=== PATIENT | female | born 1950 | race Caucasian/White ===

== ENCOUNTER 2024-02-06 09:44 | Inpatient (IN) ==
[2024-02-06 10:43] LABS: Basophils # (auto) 0.09 K/uL (0.00-0.20); Basophils % (auto) 0.7 %; Eosinophils # (auto) 1.27 K/uL (0.00-0.50); Eosinophils % (auto) 9.5 %; Hematocrit (blood only) 38.3 % (37.0-47.0); Hemoglobin 12.3 g/dl (12.0-16.0); Immature Granulocytes # (auto) 0.12 K/uL (0.01-0.20); Immature Granulocytes % (auto) 0.9 %; Lymphocytes # (auto) 2.07 K/uL (1.20-3.40); Lymphocytes % (auto) 15.5 %; Mean Corpuscular Hemoglobin 29.9 pg (25.0-34.0); Mean Corpuscular Hgb Conc 32.1 g/dL (32.0-36.0); Mean Platelet Volume 9.2 fL (9.4-12.4); Monocytes # (auto) 1.27 K/uL (0.11-0.59); Monocytes % (auto) 9.5 %; Neutrophils # (auto) 8.52 K/uL (1.40-6.50); Neutrophils % (auto) 63.9 %; Platelet Count 325 K/uL (130-400); RDW Coefficient of Variation 13.2 % (11.5-14.5); RDW Standard Deviation 44.9 fL (36.4-46.3); Red Blood Count 4.12 M/uL (4.20-5.40); White Blood Count 13.34 K/ul (4.8-10.8)
[2024-02-06 10:59] LABS: Bilirubin,Total 0.6 mg/dl (0.2-1.0); Calcium 9.8 mg/dl (8.6-10.3); Potassium 3.5 mmol/L (3.5-5.1)
--- NOTE | 2024-02-06 11:01 | XRay Report ---
SINGLE VIEW CHEST CLINICAL HISTORY: Dyspnea FINDINGS: An AP, portable, upright chest radiograph is compared to study dated 07/29/2023. The cardiom ediastinal silhouette is unremarkable noting atherosclerotic calcification of the thoracic aorta. Chr onic interstitial thickening is similar to previous. There is mild bibasilar scarring/atelectasis. Th e lungs and pleural spaces are otherwise clear. No pneumothorax is seen. The skeletal structures are osteopenic. The bony thorax is grossly intact. IMPRESSION: No acute cardiopulmonary abnormality. ACT 112: Negative or not required by law. Electronically signed by: Jeff Aiken M.D. 02/06/2024 11:00 AM
[2024-02-06 11:02] LABS: Base Excess VBG -0.2 mEq/L; HCO3 VBG 25 mmol/L; Oxygen Saturation VBG 65.2 %; PCO2 VBG 41 mmHg (38-50); PO2 VBG 36 mmHg; pH VBG 7.39 (7.36-7.41)
[2024-02-06 11:05] LABS: Albumin Globulin Ratio 1.1 (0.9-2); Est GFR (African American) 44.9 ml/min; Est GFR (Non-African American) 38.8 ml/min; Globulin 3.8 gm/dl (2.5-4.0); Total Protein 7.8 gm/dl (6.0-8.3)
[2024-02-06 11:42] LABS: Adenovirus PCR Not Detected (NotDetected); Bordetella parapertussis PCR Not Detected (NotDetected); Bordetella pertussis PCR Not Detected (NotDetected); Chlamydia pneumoniae PCR Not Detected (NotDetected); Coronavirus 229E PCR Not Detected (NotDetected); Coronavirus CoV-2 (COVID19)PCR Not Detected (NotDetected); Coronavirus HKU1 PCR Not Detected (NotDetected); Coronavirus NL63 PCR Not Detected (NotDetected); Coronavirus OC43PCR Not Detected (NotDetected); Human Metapneumovirus PCR Not Detected (NotDetected); Influenza A PCR Not Detected (NotDetected); Influenza B PCR Not Detected (NotDetected); Mycoplasma pneumoniae PCR Not Detected (NotDetected); Parainfluenza Virus 1 PCR Not Detected (NotDetected); Parainfluenza Virus 2 PCR Not Detected (NotDetected); Parainfluenza Virus 3 PCR Not Detected (NotDetected); Parainfluenza Virus 4 PCR Not Detected (NotDetected); Respiratory Syncytial VirusPCR Not Detected (NotDetected); Rhinovirus/Enterovirus PCR DETECTED (NotDetected)
[2024-02-06] MEDS: ALBUTEROL 0.5% NEB SOLN 2.5 MG/0.5 ML VIAL NEB STA (11:44)
[2024-02-06] MEDS: methylPREDNISolone 125 MG/2 ML VIAL IV STA (11:59)
[2024-02-06] MEDS: diphenhydrAMINE 50 MG/ML VIAL IV STA (11:59)
[2024-02-06] MEDS: OPTIRAY 320 125ml IV ONE (12:19)
--- NOTE | 2024-02-06 12:55 | Electrocardiogram Report ---
Test Reason : Blood Pressure : */* mmHG Vent. Rate : 113 BPM Atrial Rate : 113 BPM P-R Int : 138 ms QRS Dur : 150 ms QT Int : 304 ms P-R-T Axes : 55 43 -19 degrees QTcB Int : 416 ms Sinus tachycardia Possible Left atrial enlargement Nonspecific ST abnormality Abnormal ECG When compared with ECG of 29-Jul-2023 14:43, ST now depressed in Inferior leads Inverted T waves have replaced nonspecific T wave abnormality in Inferior leads Nonspecific T wave abnormality now evident in Anterolateral leads Confirmed by Uriel Grace ([id number]) on 02/06/2024 12:55:19 PM Referred By: REFERRED SELF Confirmed By: Uriel Grace
--- NOTE | 2024-02-06 13:00 | Emergency Department Note ---
Impression & Plan Acute hypoxic respiratory failure, Enterovirus infection, Asthma exacerbation ED Provider Note NAME: JIGAR AMBROSIO AGE: 73 SEX: F : 1950 ARRIVES VIA: Ambulance INFORMANT: Patient, ED PROVIDER(S): Lisa Pereira MD CHIEF COMPLAINT: Shortness of breath, hypoxia HPI: This is a 73-year-old female presented for shortness of breath and hypoxia. Patient states that she developed a cough on Tuesday and has been worsening since then. She notes last night she wore her 's oxygen and this morning when she took her oxygen level of 77% off of his oxygen. Patient's ox level here on room air was in the 80s. She recieved Solu-Medrol and DuoNeb as per EMS on the way here. She has a history of asthma. She notes no chest pain or pleurisy. No leg swelling or leg pain. No history of blood clots. ROS: See above HPI for pertinent positives & negatives. A total of 10 systems reviewed and were otherwise negative. PHYSICAL EXAMINATION: General: resting comfortably in no acute distress Head: Normocephalic and atraumatic Eyes: Normal inspection, extraocular muscles intact Ear, nose, throat: Normal external exam Neck: Normal range of motion Respiratory: lungs clear to auscultation bilaterally Cardiovascular: Regular rate/rhythm, no murmur GI: soft, nontender, no guarding or rebound Extremities: nontender, moves all extremities Neuro: The patient awake and alert, appropriately conversive, no focal deficits, symmetric faces Skin: Warm, dry, and intact MEDICAL DECISION MAKING: This is 73-year-old female with shortness of breath and hypoxia. Patient had respiratory type symptoms and now hypoxia. Consider pneumonia, upper respiratory infection, PE, dissection. -Chest Xray independently interpreted by me showing no pneumothorax, focal opacity, or pleural effusions. -Blood work is reviewed showing a slight leukocytosis of 13.34. Otherwise electrolytes are within normal limits. VBG within normal limits. Creatinine 1.36. Troponin negative, BNP negative. -Upper respiratory panel is positive for entero-/rhinovirus -Patient titrated from no nasal cannula to OxyMask and now to nonrebreather -Patient given a round of albuterol treatment for recurrent symptoms -Due to patient's persistent hypoxia, extreme, will proceed to CTA of the chest to rule out pulmonary embolism - upon management interpretation, no PE is seen, does reveal a possible empyema versus pneumonia -Discussed care with oncoming hospitalist for admission Differential diagnosis: See above ER treatment provided: See below Diagnostics interpreted by me: ECG: ECG independently interpreted by me with sinus tachycardia, rate of 113 normal MI, normal QRS, normal QTc, no ST segment elevations consistent with STEMI criteria Cardiac Monitoring: An order was placed for continuous cardiac monitoring. The monitor shows a rate of 80 with sinus rhythm. Laboratory studies: As stated above and show below. Imaging studies: See below. Critical Care Note: I have personally spent 35 minutes of critical care time in the direct management of this patient. This includes bedside care, interpretation of diagnostic studies, and testing, discussion with consultants, patient, and family members, and other required patient management activities. This 35 minutes is in excess of all separately billable procedures. Past Med/Surg History Problem List (Updated 02/06/24 @ 14:45 by Lisa Pereira MD) Asthma exacerbation (Acute) Enterovirus infection (Acute) Acute hypoxic respiratory failure (Acute) Premature ventricular beats Medical History (Updated 02/06/24 @ 14:45 by Lsia Pereira MD) Chronic HFrEF (heart failure with reduced ejection fraction) HTN (hypertension) Coronary artery disease Nonobstructive Cardiomyopathy Actinic keratosis History of nonmelanoma skin cancer Hypertensive kidney disease with chronic kidney disease stage III Senile osteoporosis Essential hypertension with goal blood pressure less than 140/90 Hypothyroidism, postradioiodine therapy Mild persistent asthma in adult without complication Surgical History History of cataract removal with insertion of prosthetic lens Family History Mother Heart disorder Brother H/O heart bypass surgery Brother Diabetes H/O heart bypass surgery Sister Diabetes Coronary heart disease Brother H/O heart bypass surgery Social History Smoking Status: Never smoker Hx Alcohol Use: No Hx Substance Use: No Preferred Language: [place] Communication Ability: Effective 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 Beliefs That Will Affect Care: None Current Living Situation: Spouse Feels Safe at Home: Yes Assistive Devices: None Allergies Allergies Allergy/AdvReac Type Severity Reaction Status Date / Time azithromycin Allergy Hives Verified 07/27/23 07:25 Iodinated Contrast Media Allergy Hives Verified 07/27/23 07:25 promethazine Allergy Hives Verified 07/27/23 07:25 Home Meds Home Medications Medication Instructions Recorded Confirmed alendronate 70 mg tablet 70 mg PO WK 09/19/19 02/06/24 aspirin 81 mg chewable tablet 81 mg PO DAILY 09/19/19 02/06/24 atorvastatin 20 mg tablet 20 mg PO DAILY 09/19/19 02/06/24 beclomethasone dipropionate 80 2 inh inhalation Q12H 09/19/19 02/06/24 mcg/actuation HFA breath activated aerosol albuterol sulfate 90 mcg/actuation 108 mcg inhalation Q4 PRN Cough 07/27/23 02/06/24 aerosol inhaler (Ventolin HFA) clobetasol 0.05 % topical ointment 1 applic topical 2XD 07/27/23 02/06/24 cyanocobalamin (vitamin B-12) 1,000 mcg PO DAILY 07/27/23 02/06/24 1,000 mcg tablet (Vitamin B-12) lisinopril 10 mg tablet 10 mg PO BID 07/27/23 02/06/24 multivitamin 1 tab PO DAILY 07/27/23 02/06/24 albuterol sulfate 2.5 mg/3 mL 2.5 mg inhalation Q4H PRN 02/06/24 02/06/24 (0.083 %) solution for nebulization Shortness Of Breath Or Wheezing amlodipine 2.5 mg tablet 2.5 mg PO HS 02/06/24 02/06/24 levothyroxine 88 mcg tablet 88 mcg PO DAILY 02/06/24 02/06/24 metoprolol succinate 25 mg 37.5 mg PO HS 02/06/24 02/06/24 tablet,extended release 24 hr Results & Data (ED) Vital Signs Vital Signs - 24 hr 02/06/24 09:54 02/06/24 09:57 02/06/24 10:00 Temperature Temperature Source Pulse Rate 111 H Pulse Rate from SpO2 Sensor Respiratory Rate Respiratory Effort / Characteristics Respiratory Depth Blood Pressure 166/100 H Blood Pressure Mean 125 Pulse Oximetry 84 L Oxygen Delivery Method Oxymask Oxygen Flow Rate 0 Sepsis Recent Fever Within 48 Hours Sepsis New/Unexplained Change in Mental Status Sepsis Action Taken by Nursing Oxygen Flow Rate - Titration 10 Pulse Oximetry Post Tiitration 91 02/06/24 10:00 02/06/24 10:08 02/06/24 10:08 Temperature 36.6 C Temperature Source Oral Pulse Rate 104 H Pulse Rate from SpO2 Sensor Respiratory Rate 24 Respiratory Effort / Characteristics Spontaneous Short of Breath Short of Breath Respiratory Depth Normal Blood Pressure 163/80 H 163/80 H Blood Pressure Mean 136 107 Pulse Oximetry 84 L Oxygen Delivery Method Room Air Oxygen Flow Rate Sepsis Recent Fever Within 48 Hours No Sepsis New/Unexplained Change in Mental Status No Sepsis Action Taken by Nursing No Action Required Oxygen Flow Rate - Titration Pulse Oximetry Post Tiitration 02/06/24 10:15 02/06/24 10:15 02/06/24 10:28 Temperature Temperature Source Pulse Rate Pulse Rate from SpO2 Sensor Respiratory Rate Respiratory Effort / Characteristics Respiratory Depth Blood Pressure 150/85 H 150/85 H Blood Pressure Mean 102 102 Pulse Oximetry 92 Oxygen Delivery Method Non-rebreather Oxygen Flow Rate 15 Sepsis Recent Fever Within 48 Hours Sepsis New/Unexplained Change in Mental Status Sepsis Action Taken by Nursing Oxygen Flow Rate - Titration Pulse Oximetry Post Tiitration 02/06/24 10:30 02/06/24 10:30 02/06/24 10:30 Temperature Temperature Source Pulse Rate 97 H Pulse Rate from SpO2 Sensor 96 H Respiratory Rate 26 H Respiratory Effort / Characteristics Respiratory Depth Blood Pressure 167/91 H 167/91 H Blood Pressure Mean 139 139 Pulse Oximetry 93 Oxygen Delivery Method Oxygen Flow Rate Sepsis Recent Fever Within 48 Hours Sepsis New/Unexplained Change in Mental Status Sepsis Action Taken by Nursing Oxygen Flow Rate - Titration Pulse Oximetry Post Tiitration 02/06/24 10:42 02/06/24 10:54 02/06/24 11:00 Temperature Temperature Source Pulse Rate 84 81 Pulse Rate from SpO2 Sensor 85 81 Respiratory Rate 15 19 Respiratory Effort / Characteristics Respiratory Depth Blood Pressure 159/83 H Blood Pressure Mean 140 Pulse Oximetry 93 95 Oxygen Delivery Method Oxygen Flow Rate Sepsis Recent Fever Within 48 Hours Sepsis New/Unexplained Change in Mental Status Sepsis Action Taken by Nursing Oxygen Flow Rate - Titration Pulse Oximetry Post Tiitration 02/06/24 11:06 02/06/24 11:12 02/06/24 11:15 Temperature Temperature Source Pulse Rate 80 95 H Pulse Rate from SpO2 Sensor 81 95 H Respiratory Rate 16 24 Respiratory Effort / Characteristics Respiratory Depth Blood Pressure 154/95 H Blood Pressure Mean 124 Pulse Oximetry 93 96 Oxygen Delivery Method Oxygen Flow Rate Sepsis Recent Fever Within 48 Hours Sepsis New/Unexplained Change in Mental Status Sepsis Action Taken by Nursing Oxygen Flow Rate - Titration Pulse Oximetry Post Tiitration 02/06/24 11:20 02/06/24 11:30 02/06/24 11:30 Temperature Temperature Source Pulse Rate 88 Pulse Rate from SpO2 Sensor 90 Respiratory Rate 24 Respiratory Effort / Characteristics Respiratory Depth Blood Pressure 154/78 H 154/78 H Blood Pressure Mean 106 106 Pulse Oximetry 96 Oxygen Delivery Method Oxygen Flow Rate Sepsis Recent Fever Within 48 Hours Sepsis New/Unexplained Change in Mental Status Sepsis Action Taken by Nursing Oxygen Flow Rate - Titration Pulse Oximetry Post Tiitration 02/06/24 11:39 02/06/24 11:41 02/06/24 11:44 Temperature Temperature Source Pulse Rate 86 91 H Pulse Rate from SpO2 Sensor 85 91 H Respiratory Rate 19 23 Respiratory Effort / Characteristics Respiratory Depth Blood Pressure Blood Pressure Mean Pulse Oximetry 95 94 90 Oxygen Delivery Method Oxymask Oxygen Flow Rate 10 Sepsis Recent Fever Within 48 Hours Sepsis New/Unexplained Change in Mental Status Sepsis Action Taken by Nursing Oxygen Flow Rate - Titration Pulse Oximetry Post Tiitration 02/06/24 11:45 02/06/24 11:53 02/06/24 12:00 Temperature Temperature Source Pulse Rate 87 Pulse Rate from SpO2 Sensor 87 Respiratory Rate 21 Respiratory Effort / Characteristics Respiratory Depth Blood Pressure 145/98 H 174/97 H Blood Pressure Mean 117 134 Pulse Oximetry 94 Oxygen Delivery Method Oxygen Flow Rate Sepsis Recent Fever Within 48 Hours Sepsis New/Unexplained Change in Mental Status Sepsis Action Taken by Nursing Oxygen Flow Rate - Titration Pulse Oximetry Post Tiitration Laboratory Data 02/06/24 09:56 02/06/24 09:56 Lab Results 02/06/24 02/06/24 Range/Units 09:56 10:48 WBC 13.34 H (4.8-10.8) K/ul RBC 4.12 L (4.20-5.40) M/uL Hgb 12.3 (12.0-16.0) g/dl Hct 38.3 (37.0-47.0) % MCV 93.0 (80.0-100.0) fL MCH 29.9 (25.0-34.0) pg MCHC 32.1 (32.0-36.0) g/dL RDW Std Deviation 44.9 (36.4-46.3) fL RDW Coeff of [place] 13.2 (11.5-14.5) % Plt Count 325 (130-400) K/uL MPV 9.2 L (9.4-12.4) fL Immature Gran % (Auto) 0.9 % Neut % (Auto) 63.9 % Lymph % (Auto) 15.5 % [place] % (Auto) 9.5 % Eos % (Auto) 9.5 % Baso % (Auto) 0.7 % Neut # (Auto) 8.52 H (1.40-6.50) K/uL Lymph # (Auto) 2.07 (1.20-3.40) K/uL [place] # (Auto) 1.27 H (0.11-0.59) K/uL Eos # (Auto) 1.27 H (0.00-0.50) K/uL Baso # (Auto) 0.09 (0.00-0.20) K/uL Immature Gran # (Auto) 0.12 (0.01-0.20) K/uL VBG pH 7.39 (7.36-7.41) VBG pCO2 41 (38-50) mmHg VBG pO2 36 mmHg VBG HCO3 25 mmol/L VBG O2 Saturation 65.2 % VBG Base Excess -0.2 mEq/L Sodium 136 (136-145) mmol/L Potassium 3.5 (3.5-5.1) mmol/L Chloride 102 (98-107) mmol/L Carbon Dioxide 24 (21-32) mmol/L Anion Gap 10 (3-11) BUN 15 (6-23) mg/dl Creatinine 1.36 H (0.6-1.2) mg/dl Est Cr Clr Drug Dosing 35.0 ml/min Est GFR ( Amer) 44.9 ml/min Est GFR (Non-Af Amer) 38.8 ml/min BUN/Creatinine Ratio 11.0 (10-20) Glucose 155 H (70-99(Fasting)) mg/dl Calcium 9.8 (8.6-10.3) mg/dl Total Bilirubin 0.6 (0.2-1.0) mg/dl AST 15 (13-39) U/L ALT 10 (7-52) U/L Alkaline Phosphatase 80 (34-104) U/L Troponin I High Sens 7.0 (0-14) pg/ml B-Natriuretic Peptide 82 (0-100) pg/ml Total Protein 7.8 (6.0-8.3) gm/dl Albumin 4.0 (3.4-5.0) gm/dl Globulin 3.8 (2.5-4.0) gm/dl Albumin/Globulin Ratio 1.1 (0.9-2) Adenovirus (PCR) Not Detected (NotDetected) B. pertussis DNA (PCR) Not Detected (NotDetected) B.parapertussis DNA PCR Not Detected (NotDetected) C. pneumoniae DNA (PCR) Not Detected (NotDetected) Coronavirus OC43 (PCR) Not Detected (NotDetected) Coronavirus HKU1 (PCR) Not Detected (NotDetected) Coronavirus 229E (PCR) Not Detected (NotDetected) SARS-CoV-2 (PCR) Not Detected (NotDetected) Coronavirus NL63 (PCR) Not Detected (NotDetected) Human Metapneumovir PCR Not Detected (NotDetected) Influenza Type A (PCR) Not Detected (NotDetected) Influenza Type B (PCR) Not Detected (NotDetected) M. pneumoniae (PCR) Not Detected (NotDetected) Parainfluenza 1 (PCR) Not Detected (NotDetected) Parainfluenza 2 (PCR) Not Detected (NotDetected) Parainfluenza 3 (PCR) Not Detected (NotDetected) Parainfluenza 4 (PCR) Not Detected (NotDetected) RSV (PCR) Not Detected (NotDetected) Entero/Rhino (PCR) DETECTED A (NotDetected) Administered Medications Ceftriaxone Sodium (Rocephin) 1,000 mg in 50 mls @ 100 mls/hr IV NOW ONE Stop: 02/06/24 14:59 Last Admin: 02/06/24 14:33 Dose: 100 mls/hr Documented By: GGG Discontinued Medications Albuterol (Albuterol 0.5% Neb Soln 2.5 Mg/0.5 Ml Vial) 2.5 mg NEB NOW STA; Protocol Stop: 02/06/24 11:40 Last Admin: 02/06/24 11:44 Dose: 2.5 mg Documented By: HS Diphenhydramine HCl (Diphenhydramine 50 Mg/Ml Vial) 25 mg IV NOW STA Stop: 02/06/24 11:51 Last Admin: 02/06/24 11:59 Dose: 25 mg Documented By: HS Sodium Chloride (Nss) 250 mls @ 999 mls/hr IV .Q16M ONE Stop: 02/06/24 13:16 Last Infusion: 02/06/24 13:50 Dose: Infused Documented By: Admin: 02/06/24 13:25 Dose: 999 mls/hr Documented By: HS Acetaminophen (Ofirmev) 1,000 mg in 100 mls @ 400 mls/hr IV NOW STA Stop: 02/06/24 13:42 Last Infusion: 02/06/24 13:50 Dose: Infused Documented By: Admin: 02/06/24 13:32 Dose: 400 mls/hr Documented By: HS Ioversol (Optiray 320 125ml) 119 ml IV ONCE ONE Stop: 02/06/24 12:19 Last Admin: 02/06/24 12:19 Dose: 119 ml Documented By: KSF Methylprednisolone (Methylprednisolone 125 Mg/2 Ml Vial) 125 mg IV NOW STA Stop: 02/06/24 11:51 Last Admin: 02/06/24 11:59 Dose: Not Given Documented By: HS Metoprolol Tartrate (Metoprolol Tartrate 25 Mg Tab) 12.5 mg PO ONE ONE Stop: 02/06/24 13:03 Last Admin: 02/06/24 13:20 Dose: 12.5 mg Documented By: HS Imaging Data Radiologist's Impression: Chest X-Ray 02/06/24 10:29 SINGLE VIEW CHEST CLINICAL HISTORY: Dyspnea FINDINGS: An AP, portable, upright chest radiograph is compared to study dated 07/29/2023. The cardiomediastinal silhouette is unremarkable noting atherosclerotic calcification of the thoracic aorta. Chronic interstitial thickening is similar to previous. There is mild bibasilar scarring/atelectasis. The lungs and pleural spaces are otherwise clear. No pneumothorax is seen. The skeletal structures are osteopenic. The bony thorax is grossly intact. IMPRESSION: No acute cardiopulmonary abnormality. ACT 112: Negative or not required by law. Electronically signed by: Jeff Aiken M.D. 02/06/2024 11:00 AM Chest CTA 02/06/24 11:49 CHEST CTA for PULMONARY ARTERIES CT DOSE: 370.92 mGy.cm HISTORY: Worsening cough. Shortness of breath. TECHNIQUE: Multiaxial CT images of the chest were performed following the intravenous administration of contrast to evaluate the pulmonary arteries. 3D/Maximal intensity projection images were also obtained. Sagittal and coronal reformations were also reviewed. A dose lowering technique was utilized adhering to the principles of ALARA. COMPARISON STUDY: None. FINDINGS: Normal caliber thoracic aorta with no evidence for a dissection. The heart is normal in size. No pleural or pericardial effusions. No filling defects within the pulmonary arteries to suggest a pulmonary embolus. Moderate coronary artery calcifications are noted. Limited views of the upper abdomen demonstrate normal liver, spleen, and adrenal glands. Normal esophagus. No mediastinal or hilar lymphadenopathy. There is complete collapse of the left upper lobe with partial mucoid opacification of the majority of the left upper lobe bronchi. There is mild central bronchial wall thickening with a few partially opacified right-sided distal bronchi. Linear density at the right lung base favor subsegmental atelectasis or scarring. There is a 4 mm nodule within the right lower lobe on image 65. There is a 16 x 13 mm irregular subpleural density within the superior segment of the right lower lobe medially with a few surrounding satellite nodules measuring up to 6 mm. This is indeterminate and could represent a pneumonia or primary bronchogenic malignancy. Linear density within the base of the right middle lobe favor subsegmental atelectasis. There is a 6 mm nodule within the left lower lobe in image 133. Multiple sclerotic foci seen within the thoracic spine predominantly at the endplates. Although indeterminate this may be due to long-standing degenerative change. Osteoblastic metastatic disease is considered less likely but not entirely excluded as there are no additional suspicious osseous lesions within the chest. Attention at follow-up recommended to ensure stability. There are old, healed left anterior rib fractures. No acute fractures identified. IMPRESSION: 1. Complete collapse of the left upper lobe with partial mucoid opacification of the majority of the left upper lobe bronchi. No central obstructing mass identified on this study. However, an occult obstructing lesion would be the diagnosis of exclusion. Therefore, bronchoscopy recommended for further evaluation. 2. There is a 16 x 13 mm irregular subpleural density within the superior segment of the right lower lobe medially with a few surrounding satellite nodules measuring up to 6 mm. This is indeterminate and could represent a pneumonia or primary bronchogenic malignancy. Therefore, bronchoscopy and/or short-term chest CT follow-up recommended. 3. A few additional scattered subcentimeter pulmonary nodules as described above. Attention at follow-up recommended. 4. No evidence for a pulmonary embolus. 5. Multiple sclerotic foci seen within the thoracic spine predominantly at the endplates. Although indeterminate this may be due to long-standing degenerative change. Osteoblastic metastatic disease is considered less likely but not entirely excluded as there are no additional suspicious osseous lesions within the chest. Attention at follow-up recommended to ensure stability. ACT 112: Positive. There are findings on this exam that require communication between the performing entity and the patient following Patient Test Result Information Act ([place] Act 112) guidelines. Electronically signed by: Bruce Guardado M.D. 02/06/2024 1:53 PM Discharge Plan Visit Data Chief Complaint: Shortness of Breath/Dyspnea ED Provider: Lisa Pereira Discharge Problem: Acute hypoxic respiratory failure, Enterovirus infection, Asthma exacerbation Patient Disposition: Admitted As Inpatient Discharge Instructions Interventions: ED Discharge Assessment Last Done: 02/06/24 14:43
[2024-02-06] MEDS: METOPROLOL TARTRATE 25 MG TAB PO ONE (13:20)
[2024-02-06] MEDS: SODIUM CHLORIDE 0.9% 250 ML IV ONE (13:25)
[2024-02-06] MEDS: ACETAMINOPHEN 1,000 MG/100 ML VIAL IV STA (13:32)
--- OUTSIDE RECORDS SUMMARY | 2024-02-06 13:41 | External Medical Summary | Summary of Care ---
Author Name Unknown Organization [facility] Address [address] [place] [address] Phone [phone] Care Team Providers Care Stucco Applicator Name Role Phone Bonnie Linares Primary Care Provider [phone] Reason for Visit * Reason Onset Date Comments Test Results 10/05/2023 Encounter Details Date Type Department Care Team (Late st Contact Info) Description 10/05/2023 Telephone Cardiology, [facility] [address] [facility] [place] [address] Landen Arteaga PA-C [address] [place] [address] Test Results Allergies Active Allergy Reactions Criticality Noted Date Comments Iodine 02/02/2001 Promethazine Hcl 05/31/2006 hives Azithromycin Hives 10/30/2013 documented as of this encounter (statuses as of 10/05/2023) Medications Medication Sig Dispensed Refills Start Date End Date Status aspirin 81 MG chewable tabletIndications:ASCV D (arteriosclerotic cardiovascular disease) Take 1 Tablet by mouth in the morning. with food.. 100 Tab 5 08/21/2019 Active Multivitamin Adult Oral Tablet Take 1 Tab by mouth daily. 0 Active Qvar RediHaler 80 MCG/ACT Inhalation Aerosol Breath Activated (Beclomethasone Diprop HFA)Indications:Mild persistent asthma without complication Inhale by mouth 2 Puffs in the morning AND 2 Puffs before bedtime. 21.2 g 5 01/20/2022 Active Clobetasol Propionate 0.05 % External Ointment (Temovate)Indications: Erosive pustular dermatosis of scalp Apply 2x daily to open area on scalp until resolved, then when flaring. 60 g 0 05/17/2022 Active Albuterol Sulfate HFA 108 (90 Base) MCG/ACT Inhalation Aerosol SolutionIndications:Mi ld persistent asthma without complication INHALE 2 PUFFS BY MOUTH EVERY 4 HOURS NEEDED FOR COUGH/WHEEZING 18 g 3 10/26/2022 Active Vitamin B-12 1000 MCG Oral Tablet (Cyanocobalamin) Take 1 Tablet by mouth in the morning. 0 01/07/2023 Active Metoprolol Succinate ER 25 MG Oral Tablet Extended Release 24 Hour (toPROL XL)Indications:Essenti al hypertension with goal blood pressure less than 140/90 Take 1.5 Tablets by mouth in the morning. 135 Tablet 3 04/26/2023 Active Alendronate Sodium 70 MG Oral Tablet (Fosamax)Indications:S enile osteoporosis Take 1 Tablet by mouth once a week. with 8 oz. water 30 minutes before first meal of the day. Remain upright for 30 min after taking tablet. 14 Tablet 3 05/04/2023 Active Levothyroxine Sodium 88 MCG Oral Tablet (Levoxyl)Indications:H ypothyroidism, postradioiodine therapy Take 1 Tablet by mouth daily first thing in the morning. 90 Tablet 3 07/06/2023 Active amLODIPine Besylate 2.5 MG Oral Tablet (Norvasc) Take 1 Tablet by mouth at bedtime. 0 Active Atorvastatin Calcium 20 MG Oral Tablet (Lipitor)Indications:A SCVD (arteriosclerotic cardiovascular disease) Take 1 Tablet by mouth every night at bedtime. 90 Tablet 1 08/18/2023 Active Albuterol Sulfate (2.5 MG/3ML) 0.083% Inhalation Nebulization Solution (Proventil)Indications :Mild persistent asthma without complication 3 ml in nebulizer every 4 hours as needed for wheezing, cough, or SOB 270 mL 3 08/19/2023 Active Lisinopril 10 MG Oral Tablet (Prinivil)Indications: HTN, goal below 130/80 Take 1 Tablet by mouth in the morning and 1 Tablet before bedtime. In the morning.. 180 Tablet 3 08/24/2023 Active documented as of this encounter (statuses as of 10/05/2023) Active Problems Problem Noted Date Diagnosed Date Vitamin B12 deficiency 01/07/2023 Hypertensive kidney disease with stage 3b chronic kidney disease 01/11/2022 Overview: Per CKD protocol Chronic kidney disease, stage 3b 01/11/2022 Overview: Per CKD protocol Mild CAD 10/09/2019 Hx of nonmelanoma skin cancer 06/13/2019 Overview: basal cell carcinoma (central anterior midline scalp) Actinic keratosis 06/13/2019 Overview: Efudex (face 12/20, face 05/24) Family history of ischemic heart disease 019 Senile osteoporosis 12/05/2017 Acute seasonal allergic rhinitis due to pollen 0 09/07/2017 HTN, goal below 130/80 04/14/2016 Hypothyroidism, postradioiodine therapy 03/20/20 15 Mild persistent asthma without complication 07/04 documented as of this encounter (statuses as of 10/05/2023) Resolved Problems Problem Noted Date Diagnosed Date Resolved Date Closed fracture of left patella 04/02/2022 12/24/2022 Chronic kidney disease, stage 3a 11/11/2020 01/14/2022 Overview: Per CKD protocol Hypertensive kidney disease with stage 3a chronic kidney disease 05/12/2020 01/14/2022 Overview: Per CKD protocol History of neoplasm of uncertain behavior 03/23/2019 06/13/2019 Neoplasm of uncertain behavior of skin 09/07/2018 03/23/2019 Hypertensive kidney disease with chronic kidney disease stage III 08/24/2018 05/15/2020 Overview: Per CKD protocol Anemia due to vitamin B12 deficiency 09/07/2017 2018 Vitamin B12 deficiency anemi a due to intrinsic factor deficiency 01/27/2017 2018 Kidney disease, chronic, sta ge III (GFR 30-59 ml/min) 12/01/2015 09/12/2018 HTN, goal below 140/90 08/14/201404/14 Other postablative hypothyroidism 01/25/2012 03/20/2015 Asthma with severity to be determined 12/25/2009 04/12/2012 Overview: Per Asthma Taxonomy ICD-10 update of inactive term ADVANCE DIRECTIVE INFORMATION 05/19/2006 09/07/2017 Overview: No, Advance Directive brochure offered , patient declined. BACKACHE NOS 09/21/2004 12/26/2014 Cataract 05/22/2004 03/20/2015 Asthma, allergic 05/04/2004 12/25/2009 documented as of this encounter (statuses as of 10/05/2023) Immunizations Name Administration Dates Next Due COVID-19 mRNA, LNP-s, No Pre serve, 2-Dose Series (Pfizer) 04/14/2021,09/20/2020,08/30/2020 H1N1 2009 Influenza, IM 05/21/2009 Pneumococcal Conjugate Vacc, 13 Valent (Prevnar) 03/20/2015 Pneumococcal Polysaccharide PPV23 (Pneumovax) 08/21/2019,05/01/2014,05/06/2009 Season Influenza, Quad, PF, Adjuvanted, 65+ Yrs, IM (FLUAD) 06/04/2020 Seasonal Influenza, PF, 6 M & above, IM , (FluLaval or Fluzone) 03/22/2018,05/02/2017 Seasonal Influenza, Quadriva lent Hd (Fluzone Hd) 03/29/2023,05/17/2022,04/09/2021 Seasonal Influenza, Quadriva lent, No Preserve, IM 04/21/2016 Seasonal Influenza, Split, I IV3, With Preserve, Inj 03/20/2015,05/01/2014,04/26/2011,05/06,05/03/2008,05/13/2006 Seasonal Influenza, Trivalen t, Adjuvanted, 65+ yrs 04/04/2019 TDAP (age 10 and older)(Boostrix) 04/05/2018 TDAP (age 11 and older)(Adacel) 03/20/2008 documented as of this encounter Social History Tobacco Use Types Packs/Day Years Used Date Smoking Tobacco: Passive Smo ke Exposure - Never Smoker Smokeless Tobacco: Never Alcohol Use Standard Drinks/Week Comments No 0 (1 standard drink = 0.6 oz pur e alcohol) PHQ-2 Answer Date Recorded PHQ-2 Score 0 06/04/2020 Hunger Vital Sign Answer Date Recorded Worried About Running Out of Food in the Last Ye ar Never true 04/04/2019 Ran Out of Food in the Last Year Never true 04/04/2019 Sex and Gender Information Value Date Recorded Sex Assigned at Not on file Gender Identity Not on file Sexual Orientation Not on file Job Start Date Occupation Industry Not on file Not on file Not on file documented as of this encounter Miscellaneous Notes * Telephone Encounter - Angella Castro CMA - 10/05/2023 3:36 PM EDT My g sent. * Telephone Encounter - Angella Castro CMA - 10/05/2023 3:34 PM EDT ----- Message from Landen Arteaga PA-C sent at 10/05/2023 11:57 AM EDT ----- OK/stable documented in this encounter Plan of Treatment Upcoming Encounters Date Type Department Care Team (Late st Contact Info) Description 11/21/2023 1:30 PM EDT Imaging Radiology [address] [place] [address] 02/08/2024 9:30 AM EDT Office Visit Family Medicine [address] [place] [phone] [address] [place] [address] Scheduled Procedures Name Priority Associated Diagnoses Date/Ti me COLONOSCOPY FLEXIBLE PROXIMA L DIAGNOSTIC Recall Positive colorectal cancer screening using Cologuard test Health Maintenance Due Date Last Done Comments Zoster Vaccines (1 of 2) 2001 Depression Screening 06/04/2021 06/04/2020 COVID-19 Vaccine ( season) 2023 04/14/2021, 09/20/2020, 08/30/2020 DXA Scan 11/11/2023 11/10/2021, 11/2017, 07/10/2010, Additional history exists Mammogram 11/18/2023 11/17/2022, 11/01, 08/29/2019, Additional history exists GFR 04/04/2024 10/04/2023, 11/2023, 07/05/2023, Additional history exists CKD HGB USE SMARTSET 37447 07/05/202407/05, 12/24/2022, 12/24/2022, Additional history exists Albumin/Creatinine Ratio 08/08/2024 024, 12/24/2022, 12/30/2021, Additional history exists CKD PHOS USE SMARTSET 90553 08/08/202411/2023, 12/24/2022, 12/30/2021, Additional history exists TSH 08/08/2024 08/08/2023, 08/2023, 05/20/2023, Additional history exists COLONOSCOPY-EVERY 3 YRS AGES 18-100 12/23/2025 12/23/2022, 12/23/2022, 10/16/2007 DTaP,Tdap,and Td Vaccines (3 - Td or Tdap) 04/05/2028 04/05/2018, 03/20/2008 Pneumococcal Vaccine: 65+ Years Completed 08/21/2019, 03/20/2015, 05/01/2014, Additional history exists Cologuard Discontinued 12/15/2022, 11/2022, 12/06/2022, Additional history exists Colonoscopy Discontinued 12/23/2022, 12/03, 10/16/2007 Colorectal Cancer Screening Discontinued VITAMIN D LEVEL ONCE IN A LIFETIME-USE SMARTSET# [id number] Completed 12/24/2022, 12/30/2021, 12/19/2020, Additional history exists Influenza Vaccine (FLU shot) Completed 03/29/2023, 05/17/2022, 04/09/2021, Additional history exists Fecal Occult Blood Test Discontinued GARDASIL-HPV IMMUNIZATION SERIES Aged Out No longer eligible based on patient's age to complete this topic Hepatitis B Aged Out No longer eligi ble based on patient's age to complete this topic MENINGOCOCCAL (MENACTRA/MENVEO) Aged Out No longer eligible based on patient's age to complete this topic Sigmoidoscopy Discontinued documented as of this encounter Medical Devices Not on filedocumented as of this encounter Care Teams Stucco Applicator Relationship Specialty Start Date End Date Bonnie Linares DO [address] [place] [address] [place] [phone] PCP - General Internal Medicine 02/28/17 documented as of this encounter
--- OUTSIDE RECORDS SUMMARY | 2024-02-06 13:41 | External Medical Summary | Summary of Care ---
Author Name Unknown Organization [facility] Address [address] [place] [address] Phone [phone] Care Team Providers Care Fire Extinguisher Tester Name Role Phone Bonnie Linares Primary Care Provider [phone] Reason for Visit * Reason Onset Date Comments Test Results 07/06/2023 Encounter Details Date Type Department Care Team (Late st Contact Info) Description 07/06/2023 Telephone Cardiology, [facility] [address] [facility] [place] [address] Landen Arteaga PA-C [address] [place] [address] Test Results Allergies Active Allergy Reactions Criticality Noted Date Comments Iodine 02/02/2001 Promethazine Hcl 05/31/2006 hives Azithromycin Hives 10/30/2013 documented as of this encounter (statuses as of 10/05/2023) Medications Medication Sig Dispensed Refills Start Date End Date Status aspirin 81 MG chewable tabletIndications:A SCVD (arteriosclerotic cardiovascular disease) Take 1 Tablet by mouth in the morning. with food.. 100 Tab 5 0 Active Multivitamin Adult Oral Tablet Take 1 Tab by mouth daily. 0 Active Qvar RediHaler 80 MCG/ACT Inhalation Aerosol Breath Activated (Beclomethasone Diprop HFA)Indications:Mil d persistent asthma without complication Inhale by mouth 2 Puffs in the morning AND 2 Puffs before bedtime. 21.2 g 5 2 Active Clobetasol Propionate 0.05 % External Ointment (Temovate)Indicatio ns:Erosive pustular dermatosis of scalp Apply 2x daily to open area on scalp until resolved, then when flaring. 60 g 0 2 Active Albuterol Sulfate HFA 108 (90 Base) MCG/ACT Inhalation Aerosol SolutionIndications :Mild persistent asthma without complication INHALE 2 PUFFS BY MOUTH EVERY 4 HOURS NEEDED FOR COUGH/WHEEZIN G 18 g 3 3 Active Vitamin B-12 1000 MCG Oral Tablet (Cyanocobalamin) Take 1 Tablet by mouth in the morning. 0 3 Active Metoprolol Succinate ER 25 MG Oral Tablet Extended Release 24 Hour (toPROL XL)Indications:Esse ntial hypertension with goal blood pressure less than 140/90 Take 1.5 Tablets by mouth in the morning. 135 Tablet 3 3 Active Alendronate Sodium 70 MG Oral Tablet (Fosamax)Indication s:Senile osteoporosis Take 1 Tablet by mouth once a week. with 8 oz. water 30 minutes before first meal of the day. Remain upright for 30 min after taking tablet. 14 Tablet 3 3 Active Levothyroxine Sodium 88 MCG Oral Tablet (Levoxyl)Indication s:Hypothyroidism, postradioiodine therapy Take 1 Tablet by mouth daily first thing in the morning. 90 Tablet 3 4 Active montelukast (SINGULAIR) 10 MG TabletIndications:M ild persistent asthma without complication Take 1 Tab by mouth daily. 30 Tab 5 9 07/27/19 24 Discontinued(Di scharged) Albuterol Sulfate (2.5 MG/3ML) 0.083% Inhalation Nebulization Solution (Proventil)Indicati ons:Mild persistent asthma without complication 3 ml in nebulizer every 4 hours as needed for wheezing, cough, or SOB 270 mL 3 3 08/19/19 24 Discontinued(Re fill) Atorvastatin Calcium 20 MG Oral Tablet (Lipitor)Indication s:ASCVD (arteriosclerotic cardiovascular disease) Take 1 Tablet by mouth every night at bedtime. Takes in the evening 90 Tablet 1 3 08/18/19 24 Discontinued(Re fill) Lisinopril 10 MG Oral Tablet (Prinivil)Indicatio ns:HTN, goal below 130/80 TAKE ONE TABLET BY MOUTH EVERY MORNING 90 Tablet 3 10/12/202 3 08/24/19 24 Discontinued Levothyroxine Sodium 100 MCG Oral Tablet (Levoxyl)Indication s:Hypothyroidism, postradioiodine therapy Take 1 Tablet by mouth daily first thing in the morning. 90 Tablet 3 3 07/06/19 24 Discontinued(Re fill) documented as of this encounter (statuses as [...] mRNA, LNP-s, No Pre serve, 2-Dose Series (Hers) 04/14/2021,09/20/2020,08/30/2020 H1N1 2009 Influenza, IM 05/21/2009 Pneumococcal [...] encounter Miscellaneous Notes * Telephone Encounter - Aguilar Simmons LPN - 07/06/2023 1:33 PM EST Sent patient a [employer]TE[employer] message to make aware. Medication pended. Lab ordered. ----- Message from Landen Arteaga PA-C sent at 07/06/2023 7:24 AM EST ----- Decrease Levothyroxine dosing from 100 mcg/day to 88 mcg/day. Repeat TSH in 6-8 weeks. documented in this encounter Plan of Treatment Upcoming Encounters Date Type Department Care Team (Late st Contact Info) Description 11/21/2023 1:30 PM EDT Imaging Radiology [address] [place] [address] 02/08/2024 9:30 AM EDT Office Visit Family Medicine [address] [place] [phone] Bonnie Linares[address] [place] [address] Scheduled Procedures Name Priority Associated Diagnoses Date/Ti me COLONOSCOPY FLEXIBLE PROXIMA L DIAGNOSTIC Recall Positive colorectal cancer screening using Cologuard test Health Maintenance Due Date Last Done Comments Zoster Vaccines (1 of 2) 2001 Depression Screening 06/04/2021 06/04/2020 COVID-19 Vaccine ( season) 2023 04/14/2021, 09/20/2020, 08/30/2020 DXA Scan 11/11/2023 11/10/2021, 0 11/2017, 07/10/2010, Additional history exists Mammogram 11/18/2023 11/17/2022, 11/01, 08/29/2019, Additional history exists GFR 04/04/2024 10/04/2023, 11/2023, 07/05/2023, Additional history exists CKD HGB USE SMARTSET 77464 07/05/202407/05, 12/24/2022, 12/24/2022, Additional history exists Albumin/Creatinine Ratio 08/08/2024 024, 12/24/2022, 12/30/2021, Additional history exists CKD PHOS USE SMARTSET 72657 08/08/20240 11/2023, 12/24/2022, 12/30/2021, Additional history exists TSH 08/08/2024 [...] D LEVEL ONCE IN A LIFETIME-USE SMARTSET# [id number] Completed 12/24/2022, 12/30/2021, 12/19/2020, Additional history exists [...] Not on filedocumented as of this encounter Results * TSH WITH FREE T4 IF INDICATED (08/08/2023 1:51 PM EST) TSH 0.46 0.27 - 4.20 uIU/mL 2023 1:59 AM EST LABORATORY [facility] Blood Venous blood specimen / Unknown Venipuncture / Unknown 08/08/2023 1:51 PM EST 08/08/2023 1:51 PM EST Landen Arteaga PA-C LAB BLOOD ORDERABLE S LABORATORY [facility] [address] [place] [address] documented in this encounter Visit Diagnoses Diagnosis Hypothyroidism, postradioiodine therapy Other postablative hypothyroidism documented in this encounter Care Teams Fire Extinguisher Tester Relationship Specialty Start Date End Date Bonnie Linares DO [address] [place] [address] [place] [phone] PCP - General Internal Medicine 02/28/17 documented as of this encounter
--- OUTSIDE RECORDS SUMMARY | 2024-02-06 13:41 | External Medical Summary | Summary of Care ---
Author Name Unknown Organization [facility] Address [address] [place] [address] Phone [phone] Care Team Providers Care Accident Examiner Name Role Phone Bonnie Linares Primary Care Provider [phone] Reason for Visit * Reason Comments Outpatient Testing Encounter Details Date Type Department Care Team (Late st Contact Info) Description 10/04/2023 10:00 AM EDT Laboratory Laboratory [address] [place] [phone] [place] [address] [employer] Other*[id number]; HTN, goal below 130/80 Allergies Active Allergy Reactions Criticality Noted Date Comments Iodine 02/02/2001 Promethazine Hcl 05/31/2006 hives Azithromycin Hives 10/30/2013 documented as of this encounter (statuses as of 10/04/2023) Medications Medication Sig Dispensed Refills Start Date [...] as of this encounter (statuses as of 10/04/2023) Active Problems Problem Noted Date Diagnosed Date [...] as of this encounter (statuses as of 10/04/2023) Resolved Problems Problem Noted Date Diagnosed Date [...] as of this encounter (statuses as of 10/04/2023) Immunizations Name Administration Dates Next Due COVID-19 [...] on file documented as of this encounter Plan of Treatment Upcoming Encounters Date Type Department Care Team (Late st Contact Info) Description 11/21/2023 1:30 PM EDT Imaging Radiology [address] [place] [address] 02/08/2024 9:30 AM EDT Office Visit Family Medicine [address] [place] [phone] [address]nie [address] [place] [address] Pending Results Name Type Priority Associated Diagnoses Date /Time MYCODE SUBSEQUENT ADULT Lab Routine [employer] Other*[id number] 10/04/2023 9:53 AM EDT BASIC METABOLIC PANEL Lab Routine HTN, goal below 130/80 10/04/2023 9:53 AM EDT MYCODE SST1 Lab Routine [employer] Other*[id number] 10/04/2023 9:53 AM EDT MYCODE SST2 Lab Routine [employer] Other*[id number] 10/04/2023 9:53 AM EDT Scheduled Procedures Name Priority Associated Diagnoses Date/Ti me COLONOSCOPY FLEXIBLE PROXIMA L DIAGNOSTIC Recall Positive colorectal cancer screening using Cologuard test Health Maintenance Due Date Last Done Comments Zoster Vaccines (1 of 2) 2001 Depression Screening 06/04/2021 06/04/2020 COVID-19 Vaccine ( season) 2023 04/14/2021, 09/20/2020, 08/30/2020 DXA Scan 11/11/2023 11/10/2021, 06/0 11/2017, 07/10/2010, Additional history exists Mammogram 11/18/2023 11/17/2022, 11/01, 08/29/2019, Additional history exists GFR 02/06/2024 08/08/2023, 0 08/2023, 05/20/2023, Additional history exists CKD HGB USE SMARTSET 03337 07/05/202407/05, 12/24/2022, 12/24/2022, Additional history exists Albumin/Creatinine Ratio 08/08/2024 024, 12/24/2022, 12/30/2021, Additional history exists CKD PHOS USE SMARTSET 58708 08/08/20240 11/2023, 12/24/2022, 12/30/2021, Additional history exists [...] D LEVEL ONCE IN A LIFETIME-USE SMARTSET# [id number] Completed 12/24/2022, 12/30/2021, 12/19/2020, Additional history exists [...] Not on filedocumented as of this encounter Visit Diagnoses Diagnosis [employer] Other*[id number] HTN, goal below 130/80 Unspecified essential hypertension documented in this encounter Care Teams Accident Examiner Relationship Specialty Start Date End Date Bonnie Linares DO [address] [place] [address] [place] [phone] PCP - General Internal Medicine 02/28/17 documented as of this encounter
--- OUTSIDE RECORDS SUMMARY | 2024-02-06 13:41 | External Medical Summary | Summary of Care ---
Author Name Unknown Organization [facility] Address [address] [place] [address] Phone [phone] Care Team Providers Care Data Center Solutions Architect Name Role Phone Bonnie Linares DO Primary Care Provider Reason for Visit * Reason Onset Date Comments Medication Refill 10/10/2023 Encounter Details Date Type Department Care Team ([facility] st Contact Info) Description 10/10/2023 Refill Family Medicine [address] [phone] Bonnie Linares DO [address] [place] [address] [place] [address] Allergies Active Allergy Reactions Criticality Noted Date Comments Iodine 02/02/2001 Promethazine Hcl 05/31/2006 hives Azithromycin Hives 10/30/2013 documented as of this encounter (statuses as of 10/14/2023) Medications Medication Sig Dispensed Refills Start Date End Date Status aspirin 81 MG chewable tabletIndications:ASCV D (arteriosclerotic cardiovascular disease) Take 1 Tablet by mouth in the morning. with food.. 100 Tab 5 08/21/2019 Active Multivitamin Adult Oral Tablet Take 1 Tab by mouth daily. 0 Active Clobetasol Propionate 0.05 % External Ointment [...] as of this encounter (statuses as of 10/14/2023) Active Problems Problem Noted Date Diagnosed Date [...] as of this encounter (statuses as of 10/14/2023) Resolved Problems Problem Noted Date Diagnosed Date [...] as of this encounter (statuses as of 10/14/2023) Immunizations Name Administration Dates Next Due COVID-19 [...] Description 11/21/2023 1:30 PM EDT Imaging Radiology [address] [place] [address] 02/08/2024 9:30 AM EDT Office Visit Family Medicine [address] [place] [phone] Bonnie Linares[address] [place] [address] Scheduled Procedures Name Priority Associated Diagnoses Date/Ti [...] Additional history exists CKD HGB USE SMARTSET 53586 07/05/202407/05, 12/24/2022, 12/24/2022, Additional history exists Albumin/Creatinine Ratio 08/08/2024 024, 12/24/2022, 12/30/2021, Additional history exists CKD PHOS USE SMARTSET 46880 08/08/20240 11/2023, 12/24/2022, 12/30/2021, Additional history exists [...] D LEVEL ONCE IN A LIFETIME-USE SMARTSET# 08915 Completed 12/24/2022, 12/30/2021, 12/19/2020, Additional history exists [...] filedocumented as of this encounter Care Teams Data Center Solutions Architect Relationship Specialty Start Date End Date Bonnie Linares DO [address] [place] [address] [place] [phone] PCP - General Internal Medicine 02/28/17 documented as of this encounter
--- OUTSIDE RECORDS SUMMARY | 2024-02-06 13:42 | External Medical Summary ---
Author Name Unknown Address Unknown Organization K01:LABORATORY [facility] [place] - [address] [place] [address] Laboratory Report Ordering Provider Test Date Status BRENDA SMALLS 10/04/2023 09:53:13 Final Observation Date Value Abnormality Reference (Units ) Status MYCODE SPECIMEN-SST 10/04/2023 09:53:13 Freezing of extracted DNA, whole blood and/or serum. Final Performing Location LABORATORY C - [address] [place] [address]
--- OUTSIDE RECORDS SUMMARY | 2024-02-06 13:42 | External Medical Summary | Summary of Care ---
Author Name Unknown Organization [facility] Address [address] [facility] [place] [address] Phone [phone] Care Team Providers Care Rehab Specialist Name Role Phone Bonnie Linares Primary Care Provider [phone] Reason for Referral * Precert (Within 10 days (routine)) - Pending Review Specialty Diagnoses / Procedures Referred By Contac t Referred To Contact Cardiac Studies Diagnoses Nonischemic cardiomyopathy (HCC) Procedures ECHO, COMPLETE (2D), TRANS-THORACIC Landen Arteaga PA-C [address] [place] [id number] Referral ID Status Reason Start Date Expiration Date Visits Requested Visits Authorized [id number] Pending Review Precert 04/04/[phone] Reason for Visit * Reason Comments Follow Up 6 week follow up. De nies chest pain, palpitations, dizziness, SOB and edema. Encounter Details Date Type Department Care Team (Latest Contact Info) Description 10/04/2023 9:30 AM EDT Office Visit Cardiology [address] [place] [address] Landen Arteaga PA-C [address] [place] [id number] Frequent PVCs*; HTN, goal below 130/80; Mild CAD; Essential hypertension with goal blood pressure less than 140/90; Family history of ischemic heart disease; Palpitations; Nonischemic cardiomyopathy (HCC) Allergies Active Allergy Reactions Criticality Noted Date [...] mRNA, LNP-s, No Pre serve, 2-Dose Series ([employer]) 04/14/2021,09/20/2020,08/30/2020 H1N1 2009 Influenza, IM 05/21/2009 Pneumococcal [...] on file documented as of this encounter Last Filed Vital Signs Vital Sign Reading Time Taken Comments Blood Pressure 148/78 10/04/2023 9:24 AM EDT Pulse 60 10/04/2023 9:24 AM EDT Temperature - - Respiratory Rate 15 10/04/2023 9:24 AM EDT Oxygen Saturation - - Inhaled Oxygen Concentration - - Weight 62.6 kg (138 lb 1.6 oz) 10/04/2023 9:24 A M EDT Height - - Body Mass Index 24.46 12/23/2022 9:23 AM EDT documented in this encounter Progress Notes * Landen Arteaga PA-C - 10/04/2023 9:24 AM EDT History of Present Illness: Lorraine Hunt is a very pleasant 73 year old female here today for cardiology follow-up evaluation. Initial evaluation in August 2019, evaluation of chest pain. Abnormal exercise stress echocardiography led to diagnostic cardiac catheterization at [facility] on September 19, 2019, demonstrating mild to moderate nonobstructive coronary artery disease for which medical management and risk factor modification was advised. Observed ectopy and palpitations led to Zio monitoring in March 2023 with very frequent ventricular ectopy observed, 27.5% burden, including multiple short salvos of complex ectopy. Beta-lemuel dosing increased. Resting echocardiography in June 2023 revealed mildly reduced LV systolic function, EF 40 to 44%, with moderate mitral regurgitation and grade 2 diastolic dysfunction. Lexiscan nuclear stress testing revealed an abnormal EKG response, normal perfusion imaging. Electrophysiologyconsultation postponed. Dr. Ortiz recommended referral for cardiac catheterization which transpired on July 27, 2023 , revealing moderate coronary atherosclerosis without significant obstruction, mild to moderate coronary calcification, low normal LV systolic function, EF 50 to 55%, with elevated LVEDP, systolic hypertension. Patient returns today feeling well. No complaints or concerns. No chest pain, palpitations, or unusual shortness of breath. No fluid retention. No dizziness, near syncope, or syncope. Complete Review of Systems is as stated above, negative, or noncontributory. 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 HTN, goal below 130/80 I10 Acute seasonal allergic rhinitis due to pollen J30.1 Senile osteoporosis M81.0 Family history of ischemic heart disease Z82.49 Hx of nonmelanoma skin cancer Z85.828 Actinic keratosis L57.0 Mild CAD I25.10 Hypertensive kidney disease with stage 3b chronic kidney disease (HCC) I12.9, N18.32 Chronic kidney disease, stage 3b (HCC) N18.32 Vitamin B12 deficiency E53.8 Past Medical History: Diagnosis Date Asthma, allergic Asthma, mild persistent 07/13/2011 BACKACHE NOS 09/21/2004 CATARACT NOS 05/22/2004 Closed fracture of left patella 04/02/2022 Graves disease HTN, goal below 140/90 08/14/2014 Hypothyroidism following radioiodine therapy Hypothyroidism, postradioiodine therapy 03/20/2015 Kidney disease, chronic, stage III (GFR 30-59 ml/min) ([facility]) 12/01/2015 Neoplasm of uncertain behavior of skin 09/07/2018 Other postablative hypothyroidism 01/25/2012 Senile osteoporosis 12/05/2017 Vitamin B12 deficiency anemia due to intrinsic factor deficiency 01/27/2017 Wears partial dentures uppers Past Surgical History: Procedure Laterality Date COLONOSCOPY, DIAGNOSTIC (RECTUM) 10/16/2007 repeat in 10 years COLONOSCOPY, DIAGNOSTIC (RECTUM) 12/23/2022 diverticulosis, repeat 3-5 yrs / COLONOSCOPY FLEXIBLE PROXIMAL DIAGNOSTIC performed by Jennifer Merlos DO at ENDOSCOPY [facility] REMOVE CATARACT, INSERT LENS PROSTH Bilateral Dr. Ji Family History Problem Relation Age of Onset Heart Disorder Mother 68 Coronary Artery disease Sister Diabetes Sister 62 Heart disease Brother Bypass Heart disease Brother Bypass Heart disease Brother Bypass Diabetes Brother 57 She has a strong family history of senile coronary heart disease with 4 siblings having had stents or bypass surgery in their 60's or 70's. Social History Tobacco Use Smoking status: Passive Smoke Exposure - Never Smoker Smokeless tobacco: Never Used Substance Use Topics Alcohol use: No Drug use: No Review of patient's allergies indicates: Allergen Reactions Iodine Prometh [Promethazine Hcl] hives Zithromax [Azithromycin] Hives Current Outpatient Medications Medication Sig Dispense Refill aspirin 81 MG chewable tablet Take 1 Tablet by mouth in the morning. with food.. 100 Tab 5 Multivitamin Adult Oral Tablet Take 1 Tab by mouth daily. Qvar RediHaler 80 MCG/ACT Inhalation Aerosol Breath Activated (Beclomethasone Diprop HFA) Inhale bymouth 2 Puffs in the morning AND 2 Puffs before bedtime. 21.2 g 5 Albuterol Sulfate HFA 108 (90 Base) MCG/ACT Inhalation Aerosol Solution INHALE 2 PUFFS BY MOUTH EVERY 4 HOURS NEEDED FOR COUGH/WHEEZING 18 g 3 Vitamin B-12 1000 MCG Oral Tablet (Cyanocobalamin) Take 1 Tablet by mouth in the morning. Metoprolol Succinate ER 25 MG Oral Tablet Extended Release 24 Hour (toPROL XL) Take 1.5 Tablets by mouth in the morning. 135 Tablet 3 Alendronate Sodium 70 MG Oral Tablet (Fosamax) Take 1 Tablet by mouth once a week. with 8 oz. water30 minutes before first meal of the day. Remain upright for 30 min after taking tablet. 14 Tablet 3 Levothyroxine Sodium 88 MCG Oral Tablet (Levoxyl) Take 1 Tablet by mouth daily first thing in the morning. 90 Tablet 3 amLODIPine Besylate 2.5 MG Oral Tablet (Norvasc) Take 1 Tablet by mouth at bedtime. Atorvastatin Calcium 20 MG Oral Tablet (Lipitor) Take 1 Tablet by mouth every night at bedtime. 90 Tablet 1 Albuterol Sulfate (2.5 MG/3ML) 0.083% Inhalation Nebulization Solution (Proventil) 3 ml in nebulizer every 4 hours as needed for wheezing, cough, or SOB 270 mL 3 Lisinopril 10 MG Oral Tablet (Prinivil) Take 1 Tablet by mouth in the morning and 1 Tablet before bedtime. In the morning.. 180 Tablet 3 Clobetasol Propionate 0.05 % External Ointment (Temovate) Apply 2x daily to open area on scalp until resolved, then when flaring. 60 g 0 No current facility-administered medications for this visit. OBJECTIVE/PHYSICAL EXAMINATION: BP 148/78 | Pulse 60 | Resp 15 | Wt 62.6 kg (138 lb 1.6 oz) | BMI 24.46 kg/m | BSA 1.67 m Blood pressure on my evaluation was 130/70 via the wall mounted cuff General: A&Ox3. NAD. Comfortable and cooperative Skin: No rash. Eyes: PER. Conjunctiva pink, sclera clear. HENT: Normocephalic. Atraumatic. Neck: No carotid bruits. No JVD. No HJR. Heart: Regular at 64 bpm. No ectopy noted during one minute of auscultation. No murmur. No rub. No gallop. Lungs: Clear. No wheeze. Abdomen: +BS. Soft. Nontender. No masses. No organomegaly. Extremities: No clubbing, cyanosis, or edema. Pulses: radial=2/4, posterior tibial=2/4. Limited neurological examination: No focal deficit. Data: Lipid Panel Results: Results for orders placed or performed in visit on 12/24/22 LIPID PANEL WITH DIRECT LDL IF TG IS HIGH Result Value Ref Range Triglycerides 78 <=174 mg/dL Cholesterol 98 <200 mg/dL HDL Cholesterol 40 (L) >49 mg/dL Non-HDL Cholesterol 58 <=159 mg/dL LDL Cholesterol 42 <=129 mg/dL March 2023 Zio Monitor (while on metoprolol 25 mg/day): Patient had a min HR of 43 bpm, max HR of 174 bpm, and avg HR of 67 bpm. Predominant underlying rhythm was Sinus Rhythm. 11 Ventricular Tachycardia runs occurred, the run with the fastest interval lasting 4 beats with a max rate of 144 bpm, the longest lasting 9 beats with an avg rate of 108 bpm. 11 Supraventricular Tachycardia runs occurred, the run with the fastest interval lasting 7 beats with a max rate of 174 bpm, the longest lasting 13 beats with an avg rate of 99 bpm. Isolated SVEs were rare (<1.0%), SVE Couplets were rare (<1.0%), and SVE Triplets were rare (<1.0%). Isolated VEs were frequent (27.5%, [id number]), VE Couplets were rare (<1.0%, 3603), and VE Triplets were rare (<1.0%, 153). Ventricular Bigeminy and Trigeminy were present. No patient marker or diary entries were recorded. Impression: Sinus rhythm, average rate 67 beats per minute with frequent ventricular ectopy ( 27.5% QRS complexes ) bigeminy and trigeminy and multiple short salvos of complex ventricular ectopy June 29, 2023 TTE Interpretation Summary (as per Dr. Velasquez): There was sinus bradycardia with frequent PVCs during the examination. The left ventricular cavity size is normal. The LV wall thickness is normal. There is mild diffuse left ventricular hypokinesis. The qualitative LV ejection fraction is 40-44% (mildly reduced). The left ventricular diastolic function is moderately abnormal (gradeII). The left atrium is mildly enlarged (35-41 ml/m^2). Moderate mitral regurgitation is present. Mild tricuspid regurgitation is present. July 27, 2023 coronary angiography ([facility], Dr. Velasquez): Coronary angiography: Right dominant anatomy Left main: Long with mild calcification. There is a smooth distal taper of 25% Left anterior descending: Type II in distribution. It gives rise to a large septal branch in its proximal portion and a moderately large diagonal branch at the end of its proximal third. The vessel then courses to terminate just at the apex. Left anterior descending has moderate coronary atherosclerosis and mild calcification in its proximal third. There are serial 20% stenoses but no high- grade obstruction. Apical segment is thin in caliber Left circumflex: Nondominant vessel. It consists of a bifurcating obtuse marginal and a trivial AV groove portion. There are minimal luminal regularities Right coronary artery: Dominant distribution. It gives rise to a sinoatrial branch to right ventricular branches, and at the AV groove a long posterior descending artery and a single terminal posterior ventricular branch. There are moderate luminal irregularities throughout the vessel with a focal 30% narrowing in its midportion. LV angiography: No segmental wall motion abnormalities ejection fraction 50-55% no significant mitral insufficiency ASSESSMENT Frequent ventricular ectopy. 27.5% burden via March 2023 Zio monitor, while on metoprolol succinate 25 mg/day. Asymptomatic. Seemingly under much better control following titration of metoprolol and improved blood pressure (addition of low dose amlodipine, titration of lisinopril): Mild reduction in LV systolic function, EF 40 to 44% Volume status: Normovolemic. Nonobstructive CAD. Continue appropriate medical management. Continue beta- lemuel, aspirin, statin, SIDDHARTHA inhibition, risk factor, lifestyle modification. Hypertension Dyslipidemia Stage 3 chronic kidney disease Family history of ischemic heart disease Asthma Hypothyroidism B12 RECOMMENDATIONS/PLAN: Metabolic panel today given titration of lisinopril, CKD. Continue current medications as prescribed. Possible future resumption of low dose HCTZ (12.5 mg MWF) discussed. Repeat resting echocardiography in 6 months to reassess LV systolic function. Hold off on follow-up 24-hour ambulatory EKG and Electrophysiology evaluation for now. Routine cardiology follow-up. ER with emergencies. Landen Arteaga PA-C Department of Cardiology I spent a total of 30-39 minutes (exact time 30 mins) on the date of service in preparation, delivery, and documentation of the care provided to Lorraine Hunt excluding any time spent in the performance of separately billed services. This visit involved medical care services related to at least one serious condition or complex condition requiring ongoing care. This chart was completed in part utilizing [employer] Speech Voice Recognition Software. Grammatical errors, random word insertions, prounoun errors, and incomplete sentences are an occasional consequence of this system due to software l imitations, ambient noise, and hardware issues. Any formal questions or concerns about the content,text, or information contained within the body of this dictation should be directly addressed to the provider for clarification. documented in this encounter Nursing Notes * Aguilar Simmons LPN - 10/04/2023 9:24 AM EDT Patient identified by full name and date of Chief Complaint Patient presents with Follow Up 6 week follow up. Denies chest pain, palpitations, dizziness, SOB and edema. Examination Room: 4 Name: Lorraine Hunt Date of : (1950). Reason for Visit: 6 week follow up Interim Hospitalization(s): [facility] ED 07/29/23 Problems/Concerns: Denies Chest Pain/SOB: Denies [facility] Discussed: Not applicable My [facility] is a way you can talk to your provider online through e-mail. Would you like to sign up? I can activate it for you? ALREADY ACTIVE Patient was instructed to not get up on the exam table until directed and assisted by their provider; patient is to remain seated in the chair/ wheelchair/ exam table for fall prevention and safety reasons. Patient is aware to have assistance to step down off exam table with personnel. Patient voiced full comprehension of instructions. documented in this encounter Plan of Treatment Upcoming Encounters Date Type Department Care Team (Late st Contact Info) Description 11/21/2023 1:30 PM EDT Imaging Radiology [address] [place] [id number] 02/08/2024 9:30 AM EDT Office Visit Family Medicine [address] [place] [phone] [address] [place] [address] Pending Results Name Type Priority Associated Diagnoses Date /Time BASIC METABOLIC PANEL Lab Routine HTN, goal below 130/80 10/04/2023 9:53 AM EDT Scheduled Orders Name Type Priority Associated Diagnoses Orde r Schedule BASIC METABOLIC PANEL Lab Routine HTN, goal below 130/80 Expected: 10/04/2023, Expires: 10/03/2024 ECHO, COMPLETE (2D), TRANS-THORACIC Echocardiology Routine Nonischemic cardiomyopathy (HCC) Expected: 04/04/2024, Expires: 11/02/2025 Scheduled Procedures Name Priority Associated Diagnoses Date/Ti me COLONOSCOPY FLEXIBLE PROXIMA L DIAGNOSTIC Recall Positive colorectal cancer screening using Cologuard test Health Maintenance Due Date Last Done Comments Zoster Vaccines (1 of 2) 2001 Depression Screening 06/04/2021 06/04/2020 COVID-19 Vaccine (4 - 2022- season) 2023 04/14/2021, 09/20/2020, 08/30/2020 DXA Scan 11/11/2023 11/10/2021, 11/2017, 07/10/2010, Additional history exists Mammogram 11/18/2023 11/17/2022, 11/01, 08/29/2019, Additional history exists GFR 02/06/2024 08/08/2023, 0 08/2023, 05/20/2023, Additional history exists CKD HGB USE SMARTSET 26905 07/05/202407/05, 12/24/2022, 12/24/2022, Additional history exists Albumin/Creatinine Ratio 08/08/2024 024, 12/24/2022, 12/30/2021, Additional history exists CKD PHOS USE SMARTSET [id number] 08/08/202411/2023, 12/24/2022, 12/30/2021, Additional history exists TSH 08/08/2024 08/08/2023, 0 08/2023, 05/20/2023, Additional history exists COLONOSCOPY-EVERY 3 YRS AGES 18-100 12/23/2025 12/23/2022, 12/23/2022, 10/16/2007 DTaP,Tdap,and Td Vaccines (3 - Td or Tdap) 04/05/2028 04/05/2018, 03/20/2008 Pneumococcal Vaccine: 65+ Years Completed 08/21/2019, 03/20/2015, 05/01/2014, Additional history exists Cologuard Discontinued 12/15/2022, 11/2022, 12/06/2022, Additional history exists Colonoscopy Discontinued 12/23/2022, 12/03, 10/16/2007 Colorectal Cancer Screening Discontinued VITAMIN D LEVEL ONCE IN A LIFETIME-USE SMARTSET# [id number] Completed 12/24/2022, 12/30/2021, 12/19/2020, Additional history exists [...] as of this encounter Visit Diagnoses Diagnosis Frequent PVCs- Primary Other premature beats HTN, goal below 130/80 Unspecified essential hypertension Mild CAD Essential hypertension with goal blood pressure less than 140/90 Family history of ischemic heart disease Palpitations Nonischemic cardiomyopathy (HCC) Other primary cardiomyopathies documented in this encounter Care Teams Rehab Specialist Relationship Specialty Start Date End Date Bonnie Linares DO [address] [place] [address] [place] [address] PCP - General Internal Medicine 02/28/17 documented as of this encounter"
--- OUTSIDE RECORDS SUMMARY | 2024-02-06 13:42 | External Medical Summary ---
Author Name Unknown Address Unknown Organization K01:LABORATORY [facility] [place] - [address] [place] [address] Laboratory Report Ordering Provider Test Date Status BRENDA SMALLS 10/04/2023 09:53:13 Final Observation Date Value Abnormality Reference (Units ) Status MYCODE SPECIMEN-SST 10/04/2023 09:53:13 Freezing of extracted DNA, whole blood and/or serum. Final Performing Location LABORATORY [facility] - [address] [place] [address]
--- OUTSIDE RECORDS SUMMARY | 2024-02-06 13:42 | External Medical Summary | Summary of Care ---
Author Name Unknown Organization [facility] Address [address] [place] [address] Phone [phone] Care Team Providers Care Business Analyst Sales Operations Name Role Phone Marcelo Linares Primary Care Provider [phone] Reason for Visit * Reason Comments Hospital Follow-Up Cardiac Cath 07/27/23 . [facility] ED 07/29/23. Denies chest pain, palpitations, SOB, dizziness and edema. Encounter Details Date Type Department Care Team (Late st Contact Info) Description 08/24/2023 10:00 AM EST Office Visit Cardiology, [facility] [address] [place] [address] Raza Velasquez MD [address] [place] [address] Mild CAD*; HTN, goal below 130/80; Chronic kidney disease, stage 3b (HCC); Frequent PVCs Allergies Active Allergy Reactions Criticality Noted Date Comments Iodine 02/02/2001 Promethazine Hcl 05/31/2006 hives Azithromycin Hives 10/30/2013 documented as of this encounter (statuses as of 08/24/2023) Medications Medication Sig Dispensed Refills Start Date End Date Status aspirin 81 MG chewable tabletIndications: CVD (arteriosclerotic cardiovascular disease) Take 1 Tablet by [...] Active Clobetasol Propionate 0.05 % External Ointment (Temovate)Indication s:Erosive pustular dermatosis of scalp Apply 2x daily to open area on scalp until resolved, then when flaring. 60 g 0 2 Active Albuterol Sulfate HFA 108 (90 Base) MCG/ACT Inhalation Aerosol SolutionIndications: Mild persistent asthma without complication INHALE 2 PUFFS BY MOUTH EVERY 4 HOURS NEEDED FOR COUGH/WHEEZING 18 g 3 3 Active Vitamin B-12 1000 MCG Oral Tablet (Cyanocobalamin) Take 1 Tablet by mouth in the morning. 0 3 Active Metoprolol Succinate ER 25 MG Oral Tablet Extended Release 24 Hour (toPROL XL)Indications:Essen tial hypertension with goal blood pressure less than 140/90 Take 1.5 Tablets by mouth in the morning. 135 Tablet 3 3 Active Alendronate Sodium 70 MG Oral Tablet (Fosamax)Indications :Senile osteoporosis Take 1 Tablet by mouth once a week. with 8 oz. water 30 minutes before first meal of the day. Remain upright for 30 min after taking tablet. 14 Tablet 3 3 Active Levothyroxine Sodium 88 MCG Oral Tablet (Levoxyl)Indications :Hypothyroidism, postradioiodine therapy Take 1 Tablet by mouth daily first thing in the morning. 90 Tablet 3 4 Active amLODIPine Besylate 2.5 MG Oral Tablet (Norvasc) Take 1 Tablet by mouth at bedtime. 0 Active Atorvastatin Calcium 20 MG Oral Tablet (Lipitor)Indications :ASCVD (arteriosclerotic cardiovascular disease) Take 1 Tablet by mouth every night at bedtime. 90 Tablet 1 4 Active Albuterol Sulfate (2.5 MG/3ML) 0.083% Inhalation Nebulization Solution (Proventil)Indicatio ns:Mild persistent asthma without complication 3 ml in nebulizer every 4 hours as needed for wheezing, cough, or SOB 270 mL 3 4 Active Lisinopril 10 MG Oral Tablet (Prinivil)Indication s:HTN, goal below 130/80 Take 1 Tablet by mouth in the morning and 1 Tablet before bedtime. In the morning.. 180 Tablet 3 4 Active Lisinopril 10 MG Oral Tablet (Prinivil)Indication s:HTN, goal below 130/80 TAKE ONE TABLET BY MOUTH EVERY MORNING 90 Tablet 3 3 08/24/19 24 Discontinued documented as of this encounter (statuses as of 08/24/2023) Active Problems Problem Noted Date Diagnosed Date [...] as of this encounter (statuses as of 08/24/2023) Resolved Problems Problem Noted Date Diagnosed Date [...] as of this encounter (statuses as of 08/24/2023) Immunizations Name Administration Dates Next Due COVID-19 [...] Sign Reading Time Taken Comments Blood Pressure 164/74 08/24/2023 9:44 AM EST Pulse 64 08/24/2023 9:44 AM EST Temperature - - Respiratory Rate 16 08/24/2023 9:44 AM EST Oxygen Saturation - - Inhaled Oxygen Concentration - - Weight 60.6 kg (133 lb 11.2 oz) 08/24/2023 9:44 AM EST Height - - Body Mass Index 23.68 12/23/2022 9:23 AM EDT documented in this encounter Progress Notes * Raza Velasquez MD - 08/24/2023 10:00 AM EST Cardiology Consultation [facility] 08/24/2023 Reason for Consultation: Post hospital follow-up Provider Requesting Consultation: PCP: MARCELO LINARES [address] [place] [address] [place] [address] History of Present Illness: Lorraine Hunt is a 73 year old year old female with ongoing cardiac concerns 1. Chronic ventricular ectopy with sensed palpitations 2. Nonobstructive coronary disease cardiac catheterization 2019, July 27, 2023 3. Hypertension 4. Dyslipidemia 5. Stage III CKD Patient presents on referral after recent hospitalization for diagnostic cardiac catheterization following abnormal stress nuclear testing in June 2023 with hypertensive blood pressure response and abnormal EKG. Cardiac catheterization demonstrated [id number] nonobstructive coronary athero sclerosus not significantly changed from prior study Patient was notable for hypertension during procedure and prior to procedure. Antihypertensive regimen adjusted with the addition of amlodipine to regimen Patient presents now having felt well. Notes chronic ventricular ectopy have been quiescent since adjustments in therapies. No restriction in activities. No chest pains, dizziness, lightheadedness. Does not follow blood pressures routinely at home. No edema. No fevers or chills. A Complete Review of Systems is as stated above or negative. Past Medical History: Patient Active Problem List Diagnosis Code Mild [...] (HCC) N18.32 Vitamin B12 deficiency E53.8 Past Surgical History: Procedure Laterality Date COLONOSCOPY, DIAGNOSTIC (RECTUM) 10/16/2007 repeat in 10 years COLONOSCOPY, DIAGNOSTIC (RECTUM) 12/23/2022 diverticulosis, repeat 3-5 yrs / COLONOSCOPY FLEXIBLE PROXIMAL DIAGNOSTIC performed by Jennifer Merlos DO at [facility] REMOVE CATARACT, INSERT LENS PROSTH Bilateral Dr. Ji Family History: Family History Problem Relation Age of Onset Heart Disorder Mother 68 Coronary Artery disease Sister Diabetes Sister 62 Heart disease Brother Bypass Heart disease Brother Bypass Heart disease Brother Bypass Diabetes Brother 57 Social History: Social History Socioeconomic History Marital status: Spouse name: Not on file Number of children: 1 Years of education: Not on file Highest education level: Not on file Occupational History Occupation: personal secretary Comment: retired Tobacco Use Smoking status: Passive Smoke Exposure - Never Smoker Smokeless tobacco: Never Vaping Use Vaping Use: Never used Substance and Sexual Activity Alcohol use: No Drug use: No Sexual activity: Yes Partners: Male Other Topics Concern Service No Blood Transfusions Yes Caffeine Concern Yes Occupational Exposure No Hobby Hazards No Sleep Concern No Stress Concern No Weight Concern No Special Diet Not Asked Back Care Yes Exercise Yes Bike Helmet Not Asked Seat Belt Yes Self-Exams Not Asked Social History Narrative Not on file Social Determinants of Health Financial Resource Strain: Not on file Food Insecurity: No Food Insecurity (04/04/2019) Hunger Vital Sign Worried About Running Out of Food in the Last Year: Never true Ran Out of Food in the Last Year: Never true Transportation Needs: Not on file Physical Activity: Not on file Stress: Not on file Social Connections: Not on file Intimate Partner Violence: Not on file Housing Stability: Not on file Allergies: Iodine, Prometh [promethazine hcl], and Zithromax [azithromycin] Medications: Current Outpatient Medications Medication Sig Dispense Refill [...] medications for this visit. OBJECTIVE/PHYSICAL EXAMINATION: BP 164/74 | Pulse 64 | Resp 16 | Wt 60.6 kg (133 lb 11.2 oz) | BMI 23.68 kg/m | BSA 1.64 m General: Age-appropriate in no acute distress Head: normocephalic, no masses, lesions, tenderness or abnormalities Eyes: conjunctiva are pink and non-injected, sclera clear Throat: clear Nares: without discharge Neck: supple, no adenopathy, normal jugular venous pulse, no hepatojugular reflux, no carotid bruits Chest: normal shape and normal respiratory effort Lungs: clear to auscultation and percussion Cardiac Exam: - regular rate & rhythm, no murmur, gallop or rub - normal S-1, normal S-2 right radial access site well healed Abdomen: abdomen soft, non-tender, no abnormal masses, no hepatosplenomegaly, no abdominal bruit, no femoral bruit Musculoskeletal: no gait disturbance, no joint inflammation, no deforming arthritis Extremities: no edema, no cyanosis, pulses intact 2+/4 Neuro: grossly normal exam Data: Cardiac catheterization July 27, 2023 Impression: Moderate coronary atherosclerosis without significant obstruction. Mild to moderate coronary calcification Low normal LV systolic function EF 50-55% with elevated left end-diastolic pressure Systolic hypertension EKG August 24, 2023 Sinus bradycardia 58 beats per minute with otherwise normal tracing IMPRESSION: 73 year old year old female With ongoing concerns addressed as follows 1. Chronic ventricular ectopy 2. Longstanding hypertension with hypertensive heart disease 3. [id number]-[id number] nonobstructive coronary artery disease RECOMMENDATIONS/PLAN: Discussed management with medications as noted. Patient on guideline directed optimal medical therapy for coronary artery disease. Hypertension better controlled with reduction in chronic ventricular ectopy Will increase lisinopril to 10 mg twice per day If ineffective in controlling blood pressure would add chlorthalidone. Would not increase amlodipine further Patient advised to call with any questions or concerns and to report to the ER with any and all emergencies. Disposition: Return 6 months Raza Velasquez MD Cardiology, [address] [place] [address] documented in this encounter Nursing Notes * Aguilar Simmons LPN - 08/24/2023 9:46 AM EST Patient identified by full name and date of Chief Complaint Patient presents with Hospital Follow-Up Cardiac Cath 07/27/23. [facility] ED 07/29/23. Denies chest pain, palpitations, SOB, dizziness and edema. Examination Room: 14 Name: Lorraine Hunt Date of : (1950). Reason for Visit: Follow up Interim Hospitalization(s): [facility] ED 07/29/23 Problems/Concerns: See chief complaint Chest Pain/SOB: Denies [facility] [...] Team (Late st Contact Info) Description 10/04/2023 9:30 AM EDT Office Visit Cardiology [address] [place] [address] Landen Arteaga PA-C [address] [facility] [address] 11/21/2023 1:30 PM EDT Imaging Radiology [address] [place] [address] 02/08/2024 9:30 AM EDT Office Visit Family Medicine [address] [place] [phone] Marcelo Linares, [address] [place] [address] Scheduled Orders Name Type Priority Associated Diagnoses Orde r Schedule EKG EKG Routine HTN, goal below 130/80 Ordered: 08/24/2023 Scheduled Procedures Name Priority Associated Diagnoses Date/Ti [...] Additional history exists CKD HGB USE SMARTSET 85083 07/05/202407/05, 12/24/2022, 12/24/2022, Additional history exists Albumin/Creatinine Ratio 08/08/2024 024, 12/24/2022, 12/30/2021, Additional history exists CKD PHOS USE SMARTSET 15357 08/08/20240 11/2023, 12/24/2022, 12/30/2021, Additional history exists [...] D LEVEL ONCE IN A LIFETIME-USE SMARTSET# 13027 Completed 12/24/2022, 12/30/2021, 12/19/2020, Additional history exists [...] as of this encounter Visit Diagnoses Diagnosis Mild CAD- Primary HTN, goal below 130/80 Unspecified essential hypertension Chronic kidney disease, stage 3b (HCC) Frequent PVCs Other premature beats documented in this encounter Care Teams Business Analyst Sales Operations Relationship Specialty Start Date End Date Marcelo Linares DO [address] [place] [address] [place] [address] PCP - General Internal Medicine 02/28/17 documented as of this encounter"
--- OUTSIDE RECORDS SUMMARY | 2024-02-06 13:42 | External Medical Summary ---
Author Name Unknown Address Unknown Organization K01:[facility] [place] - [address] [place] [address] Laboratory Report Ordering Provider Test Date Status KATHRYN MAHAN 10/04/2023 09:53:13 Final Observation Date Value Abnormality Reference (Units ) Status BUN 10/04/2023 09:53:13 21 Above high normal 6-20 (mg/dL) Final Creatinine 10/04/2023 09:53:13 1.4 Above high normal 0.5-1.0 (mg/dL) Final Glomerular filtration rate/1.73 sq M.predicted [Volume Rate/Area] in Serum, Plasma or Blood by Creatinine-based formula (CKD-EPI) 10/04/2023 09:53:13 39 Below low normal >=60 (mL/min) Final eGFR is calculated based on the CKD-EPI 2020 equation Sodium 10/04/2023 09:53:13 140 135-146 (m mol/L) Final Potassium 10/04/2023 09:53:13 4.7 3.5-5.1 (m mol/L) Final Cl 10/04/2023 09:53:13 106 98-107 (mm ol/L) Final CO2 10/04/2023 09:53:13 24 22-32 (mmo l/L) Final Anion gap 10/04/2023 09:53:13 10 7-15 (mmol /L) Final Glucose 10/04/2023 09:53:13 89 70-120 (mg /dL) Final Calcium 10/04/2023 09:53:13 9.6 8.4-10.2 ( mg/dL) Final Performing Location [facility] [place] - [address] [place] [address]
--- OUTSIDE RECORDS SUMMARY | 2024-02-06 13:42 | External Medical Summary | Summary of Care ---
Author Name Unknown Organization [facility] Address [address] [place] [address] Phone [phone] Care Team Providers Care Chair Car Driver Name Role Phone Marcelo Villa DO Primary Care Provider [phone] Reason for Referral * Medication Prior Authorization - Closed Specialty Diagnoses / Procedures Referred By Contchetna t Referred To Contact Diagnoses Mild persistent asthma without complication Marcelo Villa DO [address] [place] [address] [place] [address] Referral ID Status Reason Start Date Expiration Date Visits Re quested Visits Authorized [id number] Closed 999 999 Reason for Visit * Reason Onset Date Comments Medication Refill 08/19/2023 Encounter Details Date Type Department Care Team (Late st Contact Info) Description 08/19/2023 Refill Family Medicine [address] [place] [address] Marcelo Villa DO [address] [place] [address] [place] [address] Mild persistent asthma without complication Allergies Active Allergy Reactions Criticality Noted Date Comments Iodine 02/02/2001 Promethazine Hcl 05/31/2006 hives Azithromycin Hives 10/30/2013 documented as of this encounter (statuses as of 08/19/2023) Medications Medication Sig Dispensed Refills Start Date [...] mouth in the morning. 0 01/07/2023 Active Lisinopril 10 MG Oral Tablet (Prinivil)Indication s:HTN, goal below 130/80 TAKE ONE TABLET BY MOUTH EVERY MORNING 90 Tablet 3 04/14/2023 Active Metoprolol Succinate ER 25 MG Oral [...] or SOB 270 mL 3 08/19/2023 Active Albuterol Sulfate (2.5 MG/3ML) 0.083% Inhalation Nebulization Solution (Proventil)Indicatio ns:Mild persistent asthma without complication 3 ml in nebulizer every 4 hours as needed for wheezing, cough, or SOB 270 mL 3 08/12/2022 Discontinue d(Refill) documented as of this encounter (statuses as of 08/19/2023) Active Problems Problem Noted Date Diagnosed Date [...] as of this encounter (statuses as of 08/19/2023) Resolved Problems Problem Noted Date Diagnosed Date [...] as of this encounter (statuses as of 08/19/2023) Immunizations Name Administration Dates Next Due COVID-19 mRNA, LNP-s, No Pre serve, 2-Dose Series (HCDC) 04/14/2021,09/20/2020,08/30/2020 H1N1 2009 Influenza, IM 05/21/2009 Pneumococcal [...] encounter Miscellaneous Notes * Telephone Encounter - Marcelo Villa DO - 08/19/2023 1:48 PM ESTSigned Prescriptions: Disp Refills Albuterol Sulfate (2.5 MG/3ML) 0.083% Inha*270 mL 3 Si ml in nebulizer every 4 hours as needed for wheezing, cough, or SOB Authorizing Provider: MARCELO VILLA * Telephone Encounter - Aury Beaulieu CMA - 08/19/2023 1:00 PM ESTPending Prescriptions: Disp Refills Albuterol Sulfate (2.5 MG/3ML) 0.083% Inha*270 mL 3 Si ml in nebulizer every 4 hours as needed for wheezing, cough, or SOB * Telephone Encounter - Babita Bueno OSA - 08/19/2023 9:06 AM EST Did you pend patient's preferred pharmacy and medication before forwarding?yes Pharmacy: [facility], [address] [place] Pending Prescriptions: Disp Refills Albuterol Sulfate (2.5 MG/3ML) 0.083% Inh*270 mL 3 Si ml in nebulizer every 4 hours as needed for wheezing, cough, or SOB Last Visit: 01/07/2023 (in office), Visit date not found (telemedicine) Next Visit: 02/08/2024 If no future appointments scheduled, and last appointment is greater than a year ago, please schedule patient for a follow-up appointment Last date the medication was ordered: 2 Is this request for a controlled substance?No Urine Drug Screen:No results found for this or any previous visit. Patient Phone Numbers Labs: Lab Results Component Value Date/Time CREAT 1.2 (H) 08/08/2023 01:51 PM CREAT 1.2 (H) 06/04/2020 02:43 PM POTASSIUM 4.7 08/08/2023 01:51 PM POTASSIUM 4.9 06/04/2020 02:43 PM TSH 0.46 08/08/2023 01:51 PM TSH 5.62 (H) 06/04/2020 02:43 PM LDLCALC 42 12/24/2022 10:17 AM LDLCALC 56 10/09/2019 10:32 AM LDLDIRECT NOT APPLICABLE 10/09/2019 10:32 AM ALT 12 08/08/2023 01:51 PM ALT 14 06/04/2020 02:43 PM documented in this encounter Plan of Treatment Upcoming Encounters Date Type Department Care Team (Late st Contact Info) Description 08/24/2023 10:00 AM EST Office Visit Cardiology, [facility] [address] [address] Raza Velasquez MD [address] [place] [address] 10/04/2023 9:30 AM EDT Office Visit Cardiology [address] [place] [address] Lanedn Arteaga PA-C [address] [address] 11/21/2023 1:30 PM EDT Imaging Radiology [address] [place] [address] 02/08/2024 9:30 AM EDT Office Visit Family Medicine [address] [place] [phone] [place] [address] Scheduled Procedures Name Priority Associated Diagnoses Date/Ti [...] 08/29/2019, Additional history exists GFR 02/06/2024 08/08/2023, 08/2023, 05/20/2023, Additional history exists CKD HGB USE SMARTSET 23998 07/05/202407/05, 12/24/2022, 12/24/2022, Additional history exists Albumin/Creatinine Ratio 08/08/2024 024, 12/24/2022, 12/30/2021, Additional history exists CKD PHOS USE SMARTSET 63973 08/08/20240 11/2023, 12/24/2022, 12/30/2021, Additional history exists [...] D LEVEL ONCE IN A LIFETIME-USE SMARTSET# 70894 Completed 12/24/2022, 12/30/2021, 12/19/2020, Additional history exists [...] of this encounter Visit Diagnoses Diagnosis Mild persistent asthma without complication Unspecified asthma documented in this encounter Care Teams Chair Car Driver Relationship Specialty Start Date End Date Marcelo Villa DO [address] [place] [address] [place] [address] PCP - General Internal Medicine 02/28/17 documented as of this encounter
--- OUTSIDE RECORDS SUMMARY | 2024-02-06 13:42 | External Medical Summary | Summary of Care ---
Author Name Unknown Organization [facility] Address [address] [place] [address] Phone [phone] Care Team Providers Care Mat Inspector Name Role Phone Bonnie Linares DO Primary Care Provider [phone] Reason for Visit * Reason Onset Date Comments Mycode Lab Reorder 10/04/2023 Encounter Details Date Type Department Care Team (Late st Contact Info) Description 10/04/2023 Orders Only Outcomes Research Department [address] [place], [place] [id number] Alise Seymour CHRA MyCode Research Other*[id number]* Allergies Active Allergy Reactions Criticality Noted Date [...] on file documented as of this encounter Progress Notes * Alise Seymour CHRA - 10/04/2023 7:45 AM EDT MyCode lab reordered. documented in this encounter Plan of Treatment Upcoming Encounters Date Type Department Care Team (Late st Contact Info) Description 10/04/2023 9:30 AM EDT Office Visit Cardiology [address] [place] [address] Landen Arteaga PA-C [address] [place] [address] 11/21/2023 1:30 PM EDT Imaging Radiology [address] [place] [address] 02/08/2024 9:30 AM EDT Office Visit Family Medicine [address] [place] [phone] [address] [place] [address] Scheduled Orders Name Type Priority Associated Diagnoses Orde r Schedule MYCODE SUBSEQUENT ADULT Lab Routine MyCode Research Other*[id number] Every 6 Months for 2 Occurrences starting 10/04/2023 until 10/23/2024 Scheduled Procedures Name Priority Associated Diagnoses Date/Ti [...] Additional history exists CKD HGB USE SMARTSET 91687 07/05/202407/05, 12/24/2022, 12/24/2022, Additional history exists Albumin/Creatinine Ratio 08/08/2024 024, 12/24/2022, 12/30/2021, Additional history exists CKD PHOS USE SMARTSET 48000 08/08/202411/2023, 12/24/2022, 12/30/2021, Additional history exists TSH [...] D LEVEL ONCE IN A LIFETIME-USE SMARTSET# 39148 Completed 12/24/2022, 12/30/2021, 12/19/2020, Additional history exists [...] this encounter Visit Diagnoses Diagnosis MyCode Research Other*[id number]- Primary documented in this encounter Care Teams Mat Inspector Relationship Specialty Start Date End Date Bonnie Linares DO [address] [place] [address] [place] [phone] PCP - General Internal Medicine 02/28/17 documented as of this encounter
--- OUTSIDE RECORDS SUMMARY | 2024-02-06 13:42 | External Medical Summary | Summary of Care ---
Author Name Unknown Organization [facility] Address [address] [place] [address] Phone [phone] Care Team Providers Care Certified Indoor Environmentalist Name Role Phone Marcelo Villa DO Primary Care Provider [phone] Reason for Visit * Reason Onset Date Comments Medication Refill 08/18/2023 Encounter Details Date Type Department Care Team ([facility] st Contact Info) Description 08/18/2023 Refill Family Medicine [address] [id number] Marcelo Villa DO [address] [place], [place] [address] [address] ASCVD (arteriosclerotic cardiovascular disease) Allergies Active Allergy Reactions Criticality Noted Date Comments Iodine 02/02/2001 Promethazine Hcl 05/31/2006 hives Azithromycin Hives 10/30/2013 documented as of this encounter (statuses as of 08/18/2023) Medications Medication Sig Dispensed Refills Start Date [...] 60 g 0 05/17/2022 Active Albuterol Sulfate (2.5 MG/3ML) 0.083% Inhalation Nebulization Solution (Proventil)Indicatio ns:Mild persistent asthma without complication 3 ml in nebulizer every 4 hours as needed for wheezing, cough, or SOB 270 mL 3 08/12/2022 Active Albuterol Sulfate HFA 108 (90 Base) [...] at bedtime. 90 Tablet 1 08/18/2023 Active Atorvastatin Calcium 20 MG Oral Tablet (Lipitor)Indications :ASCVD (arteriosclerotic cardiovascular disease) Take 1 Tablet by mouth every night at bedtime. Takes in the evening 90 Tablet 1 02/02/2023 Discontinue d(Refill) documented as of this encounter (statuses as of 08/18/2023) Active Problems Problem Noted Date Diagnosed Date [...] as of this encounter (statuses as of 08/18/2023) Resolved Problems Problem Noted Date Diagnosed Date [...] as of this encounter (statuses as of 08/18/2023) Immunizations Name Administration Dates Next Due COVID-19 mRNA, LNP-s, No Pre serve, 2-Dose Series ([place]) 04/14/2021,09/20/2020,08/30/2020 H1N1 2009 Influenza, IM 05/21/2009 Pneumococcal [...] Telephone Encounter - Marcelo Villa DO - 08/18/2023 2:46 PM ESTSigned Prescriptions: Disp Refills Atorvastatin Calcium 20 MG Oral Tablet (Li*90 Tab*1 Sig: Take 1 Tablet by mouth every night at bedtime. Authorizing Provider: MARCELO VILLA * Telephone Encounter - Kiera Diaz RN - 08/18/2023 1:03 PM ESTPending Prescriptions: Disp Refills Atorvastatin Calcium 20 MG Oral Tablet (Li*90 Tab*1 Sig: Take 1 Tablet by mouth every night at bedtime. * Telephone Encounter - Aby Garces OSA - 08/18/2023 10:34 AM EST Did you pend patient's preferred pharmacy and medication before forwarding?yes Pharmacy: [facility], [address] [place] Pending Prescriptions: Disp Refills Atorvastatin Calcium 20 MG Oral Tablet (L*90 Tab*1 Sig: Take 1 Tablet by mouth every night at bedtime. Takes in the evening Last Visit: 01/07/2023 (in office), Visit date not found (telemedicine) Next Visit: 02/08/2024 If no future appointments scheduled, and last appointment is greater than a year ago, please schedule patient for a follow-up appointment Last date the medication was ordered: 02/02/23 Is this request for a controlled substance?No [...] 08/24/2023 10:00 AM EST Office Visit Cardiology, [facility] [address] [address] Raza Velasquez MD [address] [place] [address] 10/04/2023 9:30 AM EDT Office Visit Cardiology [address] [place] [address] Landen Arteaga PA-C [address] [place] [address] 11/21/2023 1:30 PM EDT Imaging Radiology [address] [place] [address] 02/08/2024 9:30 AM EDT Office Visit Family Medicine [address] [place] [phone] Marcelo Villa[address] [place] [address] Scheduled Procedures Name Priority Associated Diagnoses Date/Ti [...] Additional history exists CKD HGB USE SMARTSET 38304 07/05/202407/05, 12/24/2022, 12/24/2022, Additional history exists Albumin/Creatinine Ratio 08/08/2024 024, 12/24/2022, 12/30/2021, Additional history exists CKD PHOS USE SMARTSET 49347 08/08/202411/2023, 12/24/2022, 12/30/2021, Additional history exists TSH [...] D LEVEL ONCE IN A LIFETIME-USE SMARTSET# [id number] Completed 12/24/2022, 12/30/2021, 12/19/2020, Additional history exists [...] as of this encounter Visit Diagnoses Diagnosis ASCVD (arteriosclerotic cardiovascular disease) Unspecified cardiovascular disease documented in this encounter Care Teams Certified Indoor Environmentalist Relationship Specialty Start Date End Date Marcelo Villa DO [address] [place] [address] [place] [address] PCP - General Internal Medicine 02/28/17 documented as of this encounter
--- NOTE | 2024-02-06 13:48 | History & Physical Report ---
Date of Service February 06, 2024 Assessment & Plan (1) Acute hypoxic respiratory failure: (2) Enterovirus infection: (3) Consolidation of left upper lobe of lung: (4) Asthma exacerbation: Plan: Admit to telemetry Patient presenting from home with reports of shortness of breath and cough. In the ED, patient was hypoxic on room air 84%, initially required up to 10 L of oxygen via OxyMask Patient tested positive for entero-/rhinovirus CTA chest: IMPRESSION: 1. Complete collapse of the left upper lobe with partial mucoid opacification of the majority of the left upper lobe bronchi. No central obstructing mass identified on this study. However, an occult obstructing lesion would be the diagnosis of exclusion. Therefore, bronchoscopy recommended for further evaluation. 2. There is a 16 x 13 mm irregular subpleural density within the superior segment of the right lower lobe medially with a few surrounding satellite nodules measuring up to 6 mm. This is indeterminate and could represent a pneumonia or primary bronchogenic malignancy. Therefore, bronchoscopy and/or short-term chest CT follow-up recommended. 3. A few additional scattered subcentimeter pulmonary nodules as described above. Attention at follow-up recommended. 4. No evidence for a pulmonary embolus. 5. Multiple sclerotic foci seen within the thoracic spine predominantly at the endplates. Although indeterminate this may be due to long-standing degenerative change. Osteoblastic metastatic disease is considered less likely but not entirely excluded as there are no additional suspicious osseous lesions within the chest. Attention at follow-up recommended to ensure stability. Started on empiric Zosyn and doxycycline Pulmonary consulted - Case discussed with Dr. Contreras via [employer] Started on percussive vest therapy and hypertonic nebs, nebulized budesonide and nebulized formoterol twice daily IV Solu-Medrol 40 mg q12h PRN nebs (5) Multiple pulmonary nodules determined by computed tomography of lung: Plan: Pulmonary suspecting that these are inflammatory at this time, will need follow-up CT scan in 6 weeks (6) Abnormal urinalysis: Plan: UA suggest possible UTI Patient asymptomatic On IV Zosyn as above, follow urine culture (7) Chronic HFrEF (heart failure with reduced ejection fraction): Plan: Echo 06/2023-EF 40 to 44%, moderate mitral regurgitation, grade 2 diastolic dysfunction Patient appears euvolemic, does not use routine diuretics Continue beta-lemuel and ACEi Monitor volume status closely (8) Hypothyroidism, postradioiodine therapy: Plan: TSH 0.858 Continue levothyroxine (9) Hypertensive kidney disease with chronic kidney disease stage III: Plan: Baseline creatinine low to mid1s Creatinine 1.36 today Monitor renal functions (10) Premature ventricular beats: Plan: history of frequent PVCs Controlled with metoprolol DVT PROPHYLAXIS SQ heparin Patient seen in collaboration with Dr. Gates. I spent a total of 75 minutes coordinating, documenting, and providing care for this patient excluding time spent in the performance of separately billed services. This included personally reviewing all current laboratories and imaging studies, medication reconciliation, outpatient chart review, and discussion with specialists. History of Present Illness Chief Complaint: Shortness of breath Primary Care Provider: Bonnie Linares DO 73-year-old female with PMH hypothyroidism, asthma, HTN, nonobstructive CAD, mildly reduced EF 40 to 44%, CKD stage III, osteoporosis, and other problems listed below who presents to the ED for evaluation of shortness of breath. History is obtained from the patient and review of outpatient PCP and cardiology records. Patient states she developed upper respiratory symptoms a few days ago which included sore throat and nasal congestion. She then developed a cough whi ch has been mostly nonproductive. Last evening she started to feel short of breath with minimal exertion. This morning, her noted that she was short of breath and checked her pulse ox and it was 77%. He also states that she was unable to speak in full sentences. Patient denies chest pain and palpitations. No fevers or chills. Denies lightheadedness, dizziness, diaphoresis, syncopal events. Reports a good appetite and denies nausea, vomiting, abdominal pain, diarrhea. No urinary symptoms. In the ED, patient is currently requiring 10 L OxyMask to maintain saturations. She tested positive for entero-/rhinovirus. She was given IV Tylenol, nebulizer treatment, IV Benadryl, IV Solu-Medrol. Allergies Allergy/AdvReac Type Severity Reaction Status Date / Time azithromycin Allergy Hives Verified 07/27/23 07:25 Iodinated Contrast Media Allergy Hives Verified 07/27/23 07:25 promethazine Allergy Hives Verified 07/27/23 07:25 Home Medications Medication Instructions Recorded Confirmed Type alendronate 70 mg tablet 70 mg PO WK 09/19/19 02/06/24 History aspirin 81 mg chewable tablet 81 mg PO DAILY 09/19/19 02/06/24 History atorvastatin 20 mg tablet 20 mg PO DAILY 09/19/19 02/06/24 History beclomethasone dipropionate 80 2 inh inhalation Q12H 09/19/19 02/06/24 History mcg/actuation HFA breath activated aerosol albuterol sulfate 90 mcg/actuation 108 mcg inhalation Q4 PRN Cough 07/27/23 02/06/24 History aerosol inhaler (Ventolin HFA) clobetasol 0.05 % topical ointment 1 applic topical 2XD 07/27/23 02/06/24 History cyanocobalamin (vitamin B-12) 1,000 mcg PO DAILY 07/27/23 02/06/24 History 1,000 mcg tablet (Vitamin B-12) lisinopril 10 mg tablet 10 mg PO BID 07/27/23 02/06/24 History multivitamin 1 tab PO DAILY 07/27/23 02/06/24 History albuterol sulfate 2.5 mg/3 mL 2.5 mg inhalation Q4H PRN 02/06/24 02/06/24 History (0.083 %) solution for nebulization Shortness Of Breath Or Wheezing amlodipine 2.5 mg tablet 2.5 mg PO HS 02/06/24 02/06/24 History levothyroxine 88 mcg tablet 88 mcg PO DAILY 02/06/24 02/06/24 History metoprolol succinate 25 mg 37.5 mg PO HS 02/06/24 02/06/24 History tablet,extended release 24 hr Past Med/Surg History Problem List (Updated 02/06/24 @ 20:28 by ANNA Edwards) Abnormal urinalysis Acute dyspnea Multiple pulmonary nodules determined by computed tomography of lung Consolidation of left upper lobe of lung Asthma exacerbation (Acute) Enterovirus infection (Acute) Acute hypoxic respiratory failure (Acute) Premature ventricular beats Medical History (Updated 02/06/24 @ 20:28 by ANNA Edwards) Chronic HFrEF (heart failure with reduced ejection fraction) HTN (hypertension) Coronary artery disease Nonobstructive Cardiomyopathy Actinic keratosis History of nonmelanoma skin cancer Hypertensive kidney disease with chronic kidney disease stage III Senile osteoporosis Essential hypertension with goal blood pressure less than 140/90 Hypothyroidism, postradioiodine therapy Mild persistent asthma in adult without complication Surgical History History of cataract removal with insertion of prosthetic lens Family History Mother Heart disorder Brother H/O heart bypass surgery Brother Diabetes H/O heart bypass surgery Sister Diabetes Coronary heart disease Brother H/O heart bypass surgery Social History Smoking Status: Never smoker Do You Dip or Chew Tobacco: No; Hx Alcohol Use: No Hx Substance Use: No Preferred Language: Japanese Communication Ability: Effective Church Official Required: No Beliefs That Will Affect Care: None and Congregational Current Living Situation: Spouse Feels Safe at Home: Yes Assistive Devices: Denture - Upper and Glasses Review of Systems Review of Systems: ROS per HPI, all other systems reviewed and negative Physical Exam Constitutional: WD/WN, vitals as above no acute distress Eyes: PERRL, conjunctivae normal, anicteric sclerae Respiratory: normal respiratory effort; no respiratory distress Auscultation: + diminished lung sounds Cardiovascular: Rate/Rhythm: regular rhythm and + tachycardic Vessels: normal peripheral pulses Extremities: no edema Gastrointestinal (Abdomen): normal bowel sounds, soft, nontender, no hepatosplenomegaly Musculoskeletal: no cyanosis or clubbing, extremities motor strength 5/5 Skin: no rashes, warm and dry Neurologic: PERRL, EOMI, accommodation nl, no face palsy, no dysarthria Psychiatric: A+Ox3, euthymic affect Results & Data Results & Data Vital Signs (Past 12 Hours) Vital Signs Temp Pulse Resp BP Pulse Ox O2 Del Method O2 Flow Rate 02/06/24 12:45 168/96 H 02/06/24 12:38 114 H 28 H 93 02/06/24 12:30 164/88 H 02/06/24 12:30 164/88 H 02/06/24 12:00 174/97 H 02/06/24 11:53 87 21 94 02/06/24 11:45 145/98 H 02/06/24 11:44 91 H 23 90 02/06/24 11:41 86 19 94 02/06/24 11:39 95 Oxymask 10 02/06/24 11:30 154/78 H 02/06/24 11:30 154/78 H 02/06/24 11:20 88 24 96 02/06/24 11:15 154/95 H 02/06/24 11:12 95 H 24 96 02/06/24 11:06 80 16 93 02/06/24 11:00 159/83 H 02/06/24 10:54 81 19 95 02/06/24 10:42 84 15 93 02/06/24 10:30 97 H 26 H 93 02/06/24 10:30 167/91 H 02/06/24 10:30 167/91 H 02/06/24 10:28 92 Non-rebreather 15 02/06/24 10:15 150/85 H 02/06/24 10:15 150/85 H 02/06/24 10:08 36.6 C 104 H 24 163/80 H 84 L Room Air 02/06/24 10:00 163/80 H 02/06/24 10:00 84 L Oxymask 0 02/06/24 09:57 111 H 02/06/24 09:54 166/100 H Laboratory Results Short CBC 02/06/24 Range/Units 09:56 WBC 13.34 H (4.8-10.8) K/ul Hgb 12.3 (12.0-16.0) g/dl Hct 38.3 (37.0-47.0) % Plt Count 325 (130-400) K/uL BMP 02/06/24 09:56 Sodium 136 Potassium 3.5 Chloride 102 Carbon Dioxide 24 BUN 15 Creatinine 1.36 H Glucose 155 H Calcium 9.8 Liver Function 02/06/24 Range/Units 09:56 Total Bilirubin 0.6 (0.2-1.0) mg/dl AST 15 (13-39) U/L ALT 10 (7-52) U/L Alkaline Phosphatase 80 (34-104) U/L Albumin 4.0 (3.4-5.0) gm/dl Urine 02/06/24 Range/Units 13:20 Urine Color Yellow Urine Appearance Clear (Clear) Urine pH 5.5 (4.5-7.5) Ur Specific [place] 1.021 (1.000-1.030) Urine Protein Trace H (Negative) Urine Glucose (UA) Negative (Negative) Diagnostic Findings Chest X-Ray 02/06/24 10:29 SINGLE VIEW CHEST CLINICAL HISTORY: Dyspnea FINDINGS: An AP, portable, upright chest radiograph is compared to study dated 07/29/2023. The cardiomediastinal silhouette is unremarkable noting atherosclerotic calcification of the thoracic aorta. Chronic interstitial thickening is similar to previous. There is mild bibasilar scarring/atelectasis. The lungs and pleural spaces are otherwise clear. No pneumothorax is seen. The skeletal structures are osteopenic. The bony thorax is grossly intact. IMPRESSION: No acute cardiopulmonary abnormality. ACT 112: Negative or not required by law. Electronically signed by: Jeff Aiken M.D. 02/06/2024 11:00 AM Chest CTA 02/06/24 11:49 CHEST CTA for PULMONARY ARTERIES CT DOSE: 370.92 mGy.cm HISTORY: Worsening cough. Shortness of breath. TECHNIQUE: Multiaxial CT images of the chest were performed following the intravenous administration of contrast to evaluate the pulmonary arteries. 3D/Ma ximal intensity projection images were also obtained. Sagittal and coronal reformations were also reviewed. A dose lowering technique was utilized adhering to the principles of ALARA. COMPARISON STUDY: None. FINDINGS: Normal caliber thoracic aorta with no evidence for a dissection. The heart is normal in size. No pleural or pericardial effusions. No filling defects within the pulmonary arteries to suggest a pulmonary embolus. Moderate coronary artery calcifications are noted. Limited views of the upper abdomen demonstrate normal liver, spleen, and adrenal glands. Normal esophagus. No mediastinal or hilar lymphadenopathy. There is complete collapse of the left upper lobe with partial mucoid opacification of the majority of the left upper lobe bronchi. There is mild central bronchial wall thickening with a few partially opacified right-sided distal bronchi. Linear density at the right lung base favor subsegmental atelectasis or scarring. There is a 4 mm nodule within the right lower lobe on image 65. There is a 16 x 13 mm irregular subpleural density within the superior segment of the right lower lobe medially with a few surrounding satellite nodules measuring up to 6 mm. This is indeterminate and could represent a pneumonia or primary bronchogenic malignancy. Linear density within the base of the right middle lobe favor subsegmental atelectasis. There is a 6 mm nodule within the left lower lobe in image 133. Multiple sclerotic foci seen within the thoracic spine predominantly at the endplates. Although indeterminate this may be due to long-standing degenerative change. Osteoblastic metastatic disease is considered less likely but not entirely excluded as there are no additional suspicious osseous lesions within the chest. Attention at follow-up recommended to ensure stability. There are old, healed left anterior rib fractures. No acute fractures identified. IMPRESSION: 1. Complete collapse of the left upper lobe with partial mucoid opacification of the majority of the left upper lobe bronchi. No central obstructing mass identified on this study. However, an occult obstructing lesion would be the diagnosis of exclusion. Therefore, bronchoscopy recommended for further evaluation. 2. There is a 16 x 13 mm irregular subpleural density within the superior segment of the right lower lobe medially with a few surrounding satellite nodules measuring up to 6 mm. This is indeterminate and could represent a pneumonia or primary bronchogenic malignancy. Therefore, bronchoscopy and/or short-term chest CT follow-up recommended. 3. A few additional scattered subcentimeter pulmonary nodules as described above. Attention at follow-up recommended. 4. No evidence for a pulmonary embolus. 5. Multiple sclerotic foci seen within the thoracic spine predominantly at the endplates. Although indeterminate this may be due to long-standing degenerative change. Osteoblastic metastatic disease is considered less likely but not entirely excluded as there are no additional suspicious osseous lesions within the chest. Attention at follow-up recommended to ensure stability. ACT 112: Positive. There are findings on this exam that require communication between the performing entity and the patient following Patient Test Result Information Act ([place] Act 112) guidelines. Electronically signed by: Bruce Guardado M.D. 02/06/2024 1:53 PM Thoracic Spine X-Ray 02/06/24 15:10 XR thoracic spine 3V routine CLINICAL HISTORY: f/u CT, f/u possible osteoblastic lesions COMPARISON STUDY: Chest CT performed earlier today. FINDINGS: Alignment of the thoracic spine is anatomic. Vertebral body heights are maintained. No fractures are identified. Multiple sclerotic foci within the thoracic spine, predominantly adjacent to the endplates are better depicted on chest CT performed earlier today. There is mild multilevel disc space narrowing and moderate osteophytosis within the thoracic spine. IMPRESSION: 1. No thoracic spine fractures. 2. Mild multilevel degenerative disc disease within the thoracic spine. 3. Multiple sclerotic foci within the thoracic spine, better depicted on chest CT performed earlier today. These are likely degenerative in etiology. A neoplastic etiology is considered less likely however attention at follow-up is recommended to ensure stability. ACT 112: Negative or not required by law. Electronically signed by: Aaron Tapia M.D. 02/06/2024 4:52 PM Code Status & VTE Plan VTE Prophylaxis Plan VTE Prophylaxis will be ordered: Yes Supervising Physician Co-Signing Physician Notes Pt was seen and examined by myself, Ana Gates MD on the day of service. Care was coordinated with , LORIE/ANNA. [id number] presenting with acute hypoxic respiratory failure in the setting of an enterovirus/rhinovirus infection. Nonsmoker, does not use oxygen at home, requiring 11L via oxymask at the time of exam. On exam, no acute distress, oxymask on face. Coarse breath sounds bilaterally. CTA chest noting no PE but concerning for left upper lobe collapse, possible pneumonia vs. occult mass, also noting possible metastatic osteoblastic disease. Findings discussed with pt and at bedside. Pulmonology consulted, appreciate recs. IV Zosyn with doxycycline, MRSA nares pending, consider addition of Vanc if positive. XR thoracic spine, consider MRI. Oxygen supplementation as needed, wean as tolerated. Nebs, inhalers Respiratory support, supportive care for viral illness Otherwise as above. I spent a total [id number] coordinating, documenting, and providing care for this patient excluding time spent in the performance of separately billed services
--- NOTE | 2024-02-06 13:54 | CT Scan Report ---
CHEST CTA for PULMONARY ARTERIES CT DOSE: 370.92 mGy.cm HISTORY: Worsening cough. Shortness of breath. TECHNIQUE: Multiaxial CT images of the chest were performed following the intravenous administration of contrast to evaluate the pulmonary arteries. 3D/Maximal intensity projection images were also obta ined. Sagittal and coronal reformations were also reviewed. A dose lowering technique was utilized a dhering to the principles of ALARA. COMPARISON STUDY: None. FINDINGS: Normal caliber thoracic aorta with no evidence for a dissection. The heart is normal in siz e. No pleural or pericardial effusions. No filling defects within the pulmonary arteries to suggest a pulmonary embolus. Moderate coronary artery calcifications are noted. Limited views of the upper abd omen demonstrate normal liver, spleen, and adrenal glands. Normal esophagus. No mediastinal or hilar lymphadenopathy. There is complete collapse of the left upper lobe with partial mucoid opacification of the majority of the left upper lobe bronchi. There is mild central bronchial wall thickening with a few partially opacified right-sided distal bronchi. Linear density at the right lung base favor sub segmental atelectasis or scarring. There is a 4 mm nodule within the right lower lobe on image 65. Th ere is a 16 x 13 mm irregular subpleural density within the superior segment of the right lower lobe medially with a few surrounding satellite nodules measuring up to 6 mm. This is indeterminate and cou ld represent a pneumonia or primary bronchogenic malignancy. Linear density within the base of the ri ght middle lobe favor subsegmental atelectasis. There is a 6 mm nodule within the left lower lobe in image 133. Multiple sclerotic foci seen within the thoracic spine predominantly at the endplates. Alt armando indeterminate this may be due to long-standing degenerative change. Osteoblastic metastatic dis ease is considered less likely but not entirely excluded as there are no additional suspicious osseou s lesions within the chest. Attention at follow-up recommended to ensure stability. There are old, he aled left anterior rib fractures. No acute fractures identified. IMPRESSION: 1. Complete collapse of the left upper lobe with partial mucoid opacification of the majority of the left upper lobe bronchi. No central obstructing mass identified on this study. However, an occult obs tructing lesion would be the diagnosis of exclusion. Therefore, bronchoscopy recommended for further evaluation. 2. There is a 16 x 13 mm irregular subpleural density within the superior segment of the right lower lobe medially with a few surrounding satellite nodules measuring up to 6 mm. This is indeterminate an d could represent a pneumonia or primary bronchogenic malignancy. Therefore, bronchoscopy and/or shor t-term chest CT follow-up recommended. 3. A few additional scattered subcentimeter pulmonary nodules as described above. Attention at follow -up recommended. 4. No evidence for a pulmonary embolus. 5. Multiple sclerotic foci seen within the thoracic spine predominantly at the endplates. Although in determinate this may be due to long-standing degenerative change. Osteoblastic metastatic disease is considered less likely but not entirely excluded as there are no additional suspicious osseous lesion s within the chest. Attention at follow-up recommended to ensure stability. ACT 112: Positive. There are findings on this exam that require communication between the performing entity and the patient following Patient Test Result Information Act ([place] Act 112) guidelines. Electronically signed by: Bruce Guardado M.D. 02/06/2024 1:53 PM
[2024-02-06 14:32] LABS: Appearance Urine Clear (Clear); Bacteria Urine Automated 4+ (None Seen); Bilirubin Urine Negative (Negative); Blood Urine Negative (Negative); Cast Urine Automated 0-2 /lpf (0-2); Color Urine Yellow; Epithelial Cell Urine Auto 0-2 /hpf (0-2); Glucose Urine UA Negative (Negative); Ketones Urine Negative (Negative); Leukocyte Esterase Urine 2+ (Negative); Nitrite Urine Positive (Negative); Protein Urine Trace (Negative); RBC Urine Automated 0-2 /hpf (0-2); Specific Gravity Urine 1.021 (1.000-1.030); Urobilinogen Urine Negative (Negative); WBC Urine Automated 21-50 /hpf (0-5); pH Urine 5.5 (4.5-7.5)
[2024-02-06] MEDS: cefTRIAXone SODIUM 1,000 MG/50 ML BAG IV ONE (14:33)
[2024-02-06 14:42] LABS: Thyroid Stimulating Hormone 0.858 uIu/ml (0.300-4.500)
[2024-02-06] MEDS ORDERED: ACETAMINOPHEN 325 MG TAB PO PRN (14:42)
[2024-02-06] MEDS ORDERED: ONDANSETRON INJ 2 MG/ML 2 ML VIAL IV PRN (15:12)
[2024-02-06] MEDS: HEPARIN SOD 5,000 UNIT/0.5 ML VIAL SQ SCH (15:36)
[2024-02-06] MEDS: DOXYCYCLINE HYCLATE 100 MG in DEXTROSE 5% MINI-B 100 ML IV ONE (15:36)
[2024-02-06] MEDS: SODIUM CHLORIDE 0.9% 1,000 ML IV SCH (15:36)
--- NOTE | 2024-02-06 16:16 | Pulmonary Consultation ---
Date of Consultation February 06, 2024 Assessment & Plan (1) Consolidation of left upper lobe of lung: She has complete collapse of the left upper lobe with mucoid impaction. Will start the patient on percussive vest therapy and hypertonic nebs to promote mucociliary clearance. Can also consider CPAP if patient remains symptomatic despite the above therapies. We did discuss bronchoscopy at this time and the patient currently would prefer a more conservative approach and then reconsider bronchoscopy if symptoms persist. Agree with empiric antibiotics including Zosyn and doxycycline. MRSA screen is pending. (2) Enterovirus infection: Suspect this provoked her left upper lobe collapse and new onset symptoms. (3) Asthma exacerbation: Moderate asthma exacerbation triggered by viral infection. Discontinued powdered inhaler. Start the patient on nebulized budesonide and nebulized formoterol twice daily. Continue DuoNebs as needed. (4) Multiple pulmonary nodules determined by computed tomography of lung: Multiple densities and nodules noted predominantly in the right lower lobe with a 1.6 cm irregular subpleural density in the superior segment of the right lower lobe medially. Suspect these are inflammatory at this time. Will need a follow-up CT scan in about 6 weeks. (5) Acute dyspnea: Acute dyspnea secondary to hypoxemia from left upper lobe collapse and viral infection. (6) Acute hypoxic respiratory failure: Secondary to VQ mismatch given left upper lobe collapse. Symptoms improving with above treatment. Plan was also present during the visit and expressed understanding of the diagnosis and treatment plan. Pulmonary will continue to follow along with you. Thank you for the consult. History of Present Illness Reason for Consultation: Left upper lobe collapse Attending Physician: Ana Gates MD History of Present Illness 73-year-old female with a past medical history of asthma, hypothyroidism and hypertension who presented to the hospital due to ongoing shortness of breath for the past 1.5 days. She notes this morning she was very short of breath with oxygen saturations down to 74%. She notes that she does have chronic breathlessness for which she uses her inhalers which generally help alleviate her symptoms. This time she was having significant coughing and shortness of breath which was refractory to her inhalers. She notes that she visited her sick sister in the hospital on Tuesday and subsequently herself became ill. She is a lifelong non-smoker. She had a CT scan of her chest today which r evealed left upper lobe collapse and subcentimeter inflammatory nodules. She is currently on 5 L of oxygen via oxy mask and appears comfortable. Allergies Allergy/AdvReac Type Severity Reaction Status Date / Time azithromycin Allergy Hives Verified 07/27/23 07:25 Iodinated Contrast Media Allergy Hives Verified 07/27/23 07:25 promethazine Allergy Hives Verified 07/27/23 07:25 Home Medications Medication Instructions Recorded Confirmed Type alendronate 70 mg tablet 70 mg PO WK 09/19/19 02/06/24 History aspirin 81 mg chewable tablet 81 mg PO DAILY 09/19/19 02/06/24 History atorvastatin 20 mg tablet 20 mg PO DAILY 09/19/19 02/06/24 History beclomethasone dipropionate 80 2 inh inhalation Q12H 09/19/19 02/06/24 History mcg/actuation HFA breath activated aerosol albuterol sulfate 90 mcg/actuation 108 mcg inhalation Q4 PRN Cough 07/27/23 02/06/24 History aerosol inhaler (Ventolin HFA) clobetasol 0.05 % topical ointment 1 applic topical 2XD 07/27/23 02/06/24 History cyanocobalamin (vitamin B-12) 1,000 mcg PO DAILY 07/27/23 02/06/24 History 1,000 mcg tablet (Vitamin B-12) lisinopril 10 mg tablet 10 mg PO BID 07/27/23 02/06/24 History multivitamin 1 tab PO DAILY 07/27/23 02/06/24 History albuterol sulfate 2.5 mg/3 mL 2.5 mg inhalation Q4H PRN 02/06/24 02/06/24 History (0.083 %) solution for nebulization Shortness Of Breath Or Wheezing amlodipine 2.5 mg tablet 2.5 mg PO HS 02/06/24 02/06/24 History levothyroxine 88 mcg tablet 88 mcg PO DAILY 02/06/24 02/06/24 History metoprolol succinate 25 mg 37.5 mg PO HS 02/06/24 02/06/24 History tablet,extended release 24 hr Patient History Medical History (Updated 02/06/24 @ 16:13 by Lev Contreras MD) Chronic HFrEF (heart failure with reduced ejection fraction) HTN (hypertension) Coronary artery disease Nonobstructive Cardiomyopathy Actinic keratosis History of nonmelanoma skin cancer Hypertensive kidney disease with chronic kidney disease stage III Senile osteoporosis Essential hypertension with goal blood pressure less than 140/90 Hypothyroidism, postradioiodine therapy Mild persistent asthma in adult without complication Surgical History History of cataract removal with insertion of prosthetic lens Family History Mother Heart disorder Brother H/O heart bypass surgery Brother Diabetes H/O heart bypass surgery Sister Diabetes Coronary heart disease Brother H/O heart bypass surgery Social History Smoking Status: Never smoker Hx Alcohol Use: No Hx Substance Use: No Preferred Language: [place] Communication Ability: Effective Research Manager Required: No Beliefs That Will Affect Care: None Current Living Situation: Spouse Feels Safe at Home: Yes Assistive Devices: None Review of Systems Review of Systems: All systems reviewed & are unremarkable except as noted in HPI & below Physical Exam Physical Exam: Constitutional: Patient appears to be of their stated age. Patient is in no apparent distress. Patient is well-developed. Eyes: Pupils are equal round and reactive to light. Conjunctivae are normal. Anicteric sclera. Ears nose, mouth and throat: Mallampati class 2. Normal posterior oropharynx. Uvula is midline. Neck: Trachea is midline. Visual inspection is normal. Respiratory: Prolonged phase of exhalation with diffuse expiratory wheeze. Cardiovascular: Regular rate and rhythm. No murmurs. No edema. Gastrointestinal: Normal bowel sounds, soft, nontender and nondistended. No hepatosplenomegaly noted. Musculoskeletal: No cyanosis. Patient is able to move all extremities. Strength is 5 out of 5 in the upper and lower extremities. Skin: No rashes, warm dry and intact. Neurologic: No obvious focal neurological deficits seen. Psychiatric: Alert and oriented x3 with a euthymic affect. Results & Data Results & Data Vital Signs (Past 12 Hours) Vital Signs Temp Pulse Pulse Resp BP BP Pulse Ox 02/06/24 14:35 80 19 156/73 H 95 02/06/24 14:35 95 02/06/24 12:45 168/96 H 02/06/24 12:38 114 H 28 H 93 02/06/24 12:30 164/88 H 02/06/24 12:30 164/88 H 02/06/24 12:00 174/97 H 02/06/24 11:53 87 21 94 02/06/24 11:45 145/98 H 02/06/24 11:44 91 H 23 90 02/06/24 11:41 86 19 94 02/06/24 11:39 95 02/06/24 11:30 154/78 H 02/06/24 11:30 154/78 H 02/06/24 11:20 88 24 96 02/06/24 11:15 154/95 H 02/06/24 11:12 95 H 24 96 02/06/24 11:06 80 16 93 02/06/24 11:00 159/83 H 02/06/24 10:54 81 19 95 02/06/24 10:42 84 15 93 02/06/24 10:30 97 H 26 H 93 02/06/24 10:30 167/91 H 02/06/24 10:30 167/91 H 02/06/24 10:28 92 02/06/24 10:15 150/85 H 02/06/24 10:15 150/85 H 02/06/24 10:08 36.6 C 104 H 24 163/80 H 84 L 02/06/24 10:00 163/80 H 02/06/24 10:00 84 L 02/06/24 09:57 111 H 02/06/24 09:54 166/100 H O2 Del Method O2 Flow Rate 02/06/24 14:35 Oxymask 02/06/24 14:35 Oxymask 5 02/06/24 12:45 02/06/24 12:38 02/06/24 12:30 02/06/24 12:30 02/06/24 12:00 02/06/24 11:53 02/06/24 11:45 02/06/24 11:44 02/06/24 11:41 02/06/24 11:39 Oxymask 10 02/06/24 11:30 02/06/24 11:30 02/06/24 11:20 02/06/24 11:15 02/06/24 11:12 02/06/24 11:06 02/06/24 11:00 02/06/24 10:54 02/06/24 10:42 02/06/24 10:30 02/06/24 10:30 02/06/24 10:30 02/06/24 10:28 Non-rebreather 15 02/06/24 10:15 02/06/24 10:15 02/06/24 10:08 Room Air 02/06/24 10:00 02/06/24 10:00 Oxymask 0 02/06/24 09:57 02/06/24 09:54 PG Care Time/CCT Total # of Minutes Spent Total Time Spent with Patient: Total time spent is greater than 50% in coordination of care (as documented) at patient's floor/unit and/or counseling patient: Coding Level of Care Code 40911 INT INP/OBS CARE 3/75MIN Diagnoses Consolidation of left upper lobe of lung J18.1 Enterovirus infection B34.1 Asthma exacerbation J45.901 Multiple pulmonary nodules determined by computed tomography of lung R91.8 Acute dyspnea R06.00 Acute hypoxic respiratory failure J96.01
--- NOTE | 2024-02-06 16:53 | XRay Report ---
XR thoracic spine 3V routine CLINICAL HISTORY: f/u CT, f/u possible osteoblastic lesions COMPARISON STUDY: Chest CT performed earlier today. FINDINGS: Alignment of the thoracic spine is anatomic. Vertebral body heights are maintained. No frac tures are identified. Multiple sclerotic foci within the thoracic spine, predominantly adjacent to th e endplates are better depicted on chest CT performed earlier today. There is mild multilevel disc sp arnoldo narrowing and moderate osteophytosis within the thoracic spine. IMPRESSION: 1. No thoracic spine fractures. 2. Mild multilevel degenerative disc disease within the thoracic spine. 3. Multiple sclerotic foci within the thoracic spine, better depicted on chest CT performed earlier t cintia. These are likely degenerative in etiology. A neoplastic etiology is considered less likely ricci jessica attention at follow-up is recommended to ensure stability. ACT 112: Negative or not required by law. Electronically signed by: Aaron Tapia M.D. 02/06/2024 4:52 PM
[2024-02-06] MEDS: PIPERACILLIN/TAZOBACTAM 4.5 GM in DEXTROSE 5% MINI-B 100 ML IV ONE (17:50)
[2024-02-06] MEDS: ALBUT/IPRATROP 3MG/0.5MG NEB 3 ML VIAL NEB SCH (19:36)
[2024-02-06] MEDS: FORMOTEROL 20 MCG/2 ML VIAL NEB SCH (19:36)
[2024-02-06] MEDS: BUDESONIDE 0.5 MG/2 ML VIAL (PULMICORT) NEB SCH (19:36)
[2024-02-06] MEDS: SODIUM CHLOR 7% 4 ML NEB NEB SCH (19:37)
[2024-02-06] MEDS: PIPERACILLIN/TAZOBACTAM 4.5 GM in DEXTROSE 5% MINI-B 100 ML IV SCH (21:16)
[2024-02-06] MEDS: lisinopril 10 MG TAB PO SCH (21:16)
[2024-02-06] MEDS: METOPROLOL SUCC 25MG EXT REL TAB PO SCH (21:17)
[2024-02-06] MEDS: amLODIPine BESYLATE 5 MG TAB PO SCH (21:18)
[2024-02-06] MEDS: methylPREDNISolone 40 MG in SYRINGE 0 ML IV SCH (21:19)
[2024-02-06] MEDS: guaiFENesin 600 MG TABCR PO SCH (21:19)
[2024-02-07] MEDS: DOXYCYCLINE HYCLATE 100 MG in DEXTROSE 5% MINI-B 100 ML IV SCH (04:05)
[2024-02-07] MEDS: LEVOTHYROXINE SODIUM 88 MCG TABLET PO SCH (06:08)
[2024-02-07 06:31] LABS: Hematocrit (blood only) 37.7 % (37.0-47.0); Hemoglobin 12.1 g/dl (12.0-16.0); Mean Corpuscular Hemoglobin 29.9 pg (25.0-34.0); Mean Corpuscular Hgb Conc 32.1 g/dL (32.0-36.0); Mean Corpuscular Volume 93.1 fL (80.0-100.0); Mean Platelet Volume 9.4 fL (9.4-12.4); Platelet Count 242 K/uL (130-400); RDW Coefficient of Variation 13.2 % (11.5-14.5); Red Blood Count 4.05 M/uL (4.20-5.40); White Blood Count 15.75 K/ul (4.8-10.8)
[2024-02-07 07:09] LABS: BUN Creatinine Ratio 13.2 (10-20); Calcium 8.8 mg/dl (8.6-10.3); Creatinine Clr Calc Pharmacy 35.7 ml/min; Est GFR (African American) 47.9 ml/min; Est GFR (Non-African American) 41.3 ml/min; Potassium 4.3 mmol/L (3.5-5.1)
[2024-02-07] MEDS ORDERED: FLUTICASONE FUROATE 200MCG 14 PUFFS/INHALER INH SCH (09:00)
--- NOTE | 2024-02-07 09:06 | XRay Report ---
TWO VIEW CHEST CLINICAL HISTORY: Left upper lobe atelectasis. FINDINGS: PA and lateral chest radiographs are compared to chest x-ray and chest CT dated 02/06/2024. T he cardiomediastinal silhouette is unremarkable noting atherosclerotic calcification of the thoracic aorta. There are moderate patchy airspace opacities at the right lung base. Left upper lobe atelectas is is likely unchanged. No large pleural effusion or pneumothorax is seen. The skeletal structures ar e osteopenic. The bony thorax appears intact. IMPRESSION: 1. There are increasing patchy airspace opacities at the right lung base, likely representing an infe ctious/inflammatory pneumonitis. Radiographic follow-up to resolution is recommended. 2. Left upper lobe atelectasis is likely unchanged and was better assessed by CT. ACT 112: Negative or not required by law. Electronically signed by: Jeff Aiken M.D. 02/07/2024 9:05 AM
[2024-02-07] MEDS: ATORVASTATIN 20 MG TAB PO SCH (09:56)
[2024-02-07] MEDS: ASPIRIN 81 MG CHEW PO SCH (09:56)
--- NOTE | 2024-02-07 10:41 | Pulmonology Progress Note ---
Date of Service February 07, 2024 Assessment & Plan (1) Consolidation of left upper lobe of lung: Plan: She has complete collapse of the left upper lobe with mucoid impaction. Continue percussive vest therapy and hypertonic nebs to promote mucociliary clearance. Can also consider CPAP if patient remains symptomatic despite the above therapies. We did discuss bronchoscopy at this time and the patient currently would prefer a more conservative approach and then reconsider bronchoscopy if symptoms persist. Agree with empiric antibiotics including Zosyn and doxycycline. MRSA screen negative (2) Enterovirus infection: Plan: Suspect this provoked her left upper lobe collapse and new onset symptoms. (3) Asthma exacerbation: Plan: Moderate asthma exacerbation triggered by viral infection. Discontinued powdered inhaler. Continue nebulized budesonide and nebulized formoterol twice daily. Continue DuoNebs as needed. (4) Multiple pulmonary nodules determined by computed tomography of lung: Plan: Multiple densities and nodules noted predominantly in the right lower lobe with a 1.6 cm irregular subpleural density in the superior segment of the right lower lobe medially. Suspect these are inflammatory at this time. Will need a follow-up CT scan in about 6 weeks. (5) Acute dyspnea: Plan: Acute dyspnea secondary to hypoxemia from left upper lobe collapse and viral infection. Resolving. (6) Acute hypoxic respiratory failure: Plan: Secondary to VQ mismatch given left upper lobe collapse. Symptoms improving with above treatment. Plan Pulmonary will continue to follow along with you. Thank you for the consult. Admission and Anticipated Discharge Date Admission Date: February 06, 2024 Subjective Patient doing well. Feeling "98% better". Less cough and shortness of breath. Remains on supplemental. Review of Systems Review of Systems: All systems reviewed & are unremarkable except as noted in HPI & below Physical Exam Physical Exam: Constitutional: Patient appears to be of their stated age. Patient is in no apparent distress. Patient is well-developed. Eyes: Pupils are equal round and reactive to light. Conjunctivae are normal. Anicteric sclera. Ears nose, mouth and throat: No perioral cyanosis. Neck: Trachea is midline. Visual inspection is normal. Respiratory: Prolonged phase of exhalation with diffuse expiratory wheeze. Cardiovascular: Regular rate and rhythm. No murmurs. No edema. Gastrointestinal: Normal bowel sounds, soft, nontender and nondistended. No hepatosplenomegaly noted. Musculoskeletal: No cyanosis. Patient is able to move all extremities. Strength is 5 out of 5 in the upper and lower extremities. Skin: No rashes, warm dry and intact. Neurologic: No obvious focal neurological deficits seen. Psychiatric: Alert and oriented x3 with a euthymic affect. Results & Data Results & Data Vital Signs (Past 12 Hours) Vital Signs Temp Pulse Pulse Resp BP Pulse Ox O2 Del Method 02/07/24 10:14 95 Room Air 02/07/24 09:32 Nasal Cannula 02/07/24 07:40 62 02/07/24 07:27 73 16 95 Nasal Cannula 02/07/24 07:00 36.8 C 82 20 144/80 H 98 Nasal Cannula 02/07/24 02:44 36.4 C L 74 20 167/68 H 97 Nasal Cannula 02/07/24 01:00 78 17 95 Nasal Cannula 02/06/24 22:56 62 O2 Flow Rate 02/07/24 10:14 02/07/24 09:32 3 02/07/24 07:40 02/07/24 07:27 3.5 02/07/24 07:00 3.5 02/07/24 02:44 3 02/07/24 01:00 3 02/06/24 22:56 PG Care Time/CCT Total # of Minutes Spent Total Time Spent with Patient: Total time spent is greater than 50% in coordination of care (as documented) at patient's floor/unit and/or counseling patient: Coding Level of Care Code 14941 SUB INP/OBS CARE 2/35MIN Diagnoses Consolidation of left upper lobe of lung J18.1 Enterovirus infection B34.1 Asthma exacerbation J45.901 Multiple pulmonary nodules determined by computed tomography of lung R91.8 Acute dyspnea R06.00 Acute hypoxic respiratory failure J96.01
[2024-02-07] MEDS ORDERED: cefTRIAXone SODIUM 1,000 MG/50 ML BAG IV SCH (14:00)
--- NOTE | 2024-02-07 14:16 | Hospitalist Progress Note ---
Date of Service February 07, 2024 Assessment & Plan (1) Acute hypoxic respiratory failure: (2) Enterovirus infection: (3) Consolidation of left upper lobe of lung: (4) Asthma exacerbation: Plan: Patient presenting from home with shortness of breath and cough. In the ED, patient was hypoxic on room air 84%, initially required up to 10 L of oxygen via OxyMask Patient tested positive for entero-/rhinovirus Noted to have complete collapse of the left upper lobe of with mucoid plugging Has been started on empiric Zosyn and doxycycline Started on percussive vest therapy and hypertonic nebs, nebulized budesonide and nebulized formoterol twice daily IV Solu-Medrol 40 mg q12h PRN nebs Chest x-ray this morning did show right basilar infiltrate and will continue intravenous antibiotic Condition improved and the patient has been saturating normally on room air without any shortness of breath and/or wheezing Appreciate pulmonary input and recommendation Clinically much better and will continue current management Imaging studies CTA chest: IMPRESSION: 1. Complete collapse of the left upper lobe with partial mucoid opacification of the majority of the left upper lobe bronchi. No central obstructing mass identified on this study. However, an occult obstructing lesion would be the diagnosis of exclusion. Therefore, bronchoscopy recommended for further evaluation. 2. There is a 16 x 13 mm irregular subpleural density within the superior segment of the right lower lobe medially with a few surrounding satellite nodules measuring up to 6 mm. This is indeterminate and could represent a pneumonia or primary bronchogenic malignancy. Therefore, bronchoscopy and/or short-term chest CT follow-up recommended. 3. A few additional scattered subcentimeter pulmonary nodules as described above. Attention at follow-up recommended. 4. No evidence for a pulmonary embolus. 5. Multiple sclerotic foci seen within the thoracic spine predominantly at the endplates. Although indeterminate this may be due to long-standing degenerative change. Osteoblastic metastatic disease is considered less likely but not entirely excluded as there are no additional suspicious osseous lesions within the chest. Attention at follow-up recommended to ensure stability. (5) Multiple pulmonary nodules determined by computed tomography of lung: Plan: Pulmonary suspecting that these are inflammatory at this time, will need follow-up CT scan in 6 weeks (6) Abnormal urinalysis: Plan: UA suggest possible UTI Patient asymptomatic On IV Zosyn as above, follow urine culture Urine culture is growing gram-negative bacilli-continue intravenous Zosyn and await further identification and sensitivity (7) Chronic HFrEF (heart failure with reduced ejection fraction): Plan: Echo 06/2023-EF 40 to 44%, moderate mitral regurgitation, grade 2 diastolic dysfunction Patient appears euvolemic, does not use routine diuretics Continue beta-lemuel and ACEi Monitor volume status closely No signs and symptoms of CHF (8) Hypothyroidism, postradioiodine therapy: Plan: TSH 0.858 Continue levothyroxine (9) Hypertensive kidney disease with chronic kidney disease stage III: Plan: Baseline creatinine low to mid1s Creatinine 1.36 today Monitor renal functions (10) Premature ventricular beats: Plan: history of frequent PVCs Controlled with metoprolol DVT PROPHYLAXIS SQ heparin Admission and Anticipated Discharge Date Admission Date: February 06, 2024 Subjective 02/07/2024 The patient was seen and examined in telemetry unit She has been feeling much better since admission Denies any shortness of breath at rest and has been saturating normally on room air No cough and/or wheezing Review of Systems Review of Systems: All systems reviewed and are unremarkable except as noted below Physical Exam Physical Exam: Lying in bed without any acute distress Constitutional: + ill appearing and average body habitus Eyes: PERRL, conjunctivae normal, anicteric sclerae ENMT: external ear and nose normal, oropharynx normal Neck: trachea midline, no thyromegaly Respiratory: no respiratory distress Auscultation: + diminished lung sounds and + crackles (Minimal crackles right base) Cardiovascular: Rate/Rhythm: regular rate and regular rhythm; not tachycardic Heart Sounds: normal S1 and normal S2; no murmur Extremities: no edema Gastrointestinal (Abdomen): Inspection/Auscultation: normal bowel sounds; abdomen not distended Percussion/Palpation: abdomen soft; abdomen nontender Musculoskeletal: No acute arthritis involving any of the joints Neurologic: normal touch/pain/proprioception and moves all extremities; no focal motor deficits Psychiatric: A+Ox3, euthymic affect Lymphatic: no cervical or axillary lymphadenopathy Results & Data Results & Data Vital Signs (Past 12 Hours) Vital Signs Temp Pulse Pulse Resp BP Pulse Ox O2 Del Method 02/07/24 12:59 80 16 92 Room Air 02/07/24 11:25 36.5 C 67 18 120/70 94 Room Air 02/07/24 10:14 95 Room Air 02/07/24 09:32 Nasal Cannula 02/07/24 07:40 62 02/07/24 07:27 73 16 95 Nasal Cannula 02/07/24 07:00 36.8 C 82 20 144/80 H 98 Nasal Cannula 02/07/24 02:44 36.4 C L 74 20 167/68 H 97 Nasal Cannula O2 Flow Rate 02/07/24 12:59 02/07/24 11:25 02/07/24 10:14 02/07/24 09:32 3 02/07/24 07:40 02/07/24 07:27 3.5 02/07/24 07:00 3.5 02/07/24 02:44 3 Laboratory Results Short CBC 02/07/24 Range/Units 05:48 WBC 15.75 H (4.8-10.8) K/ul Hgb 12.1 (12.0-16.0) g/dl Hct 37.7 (37.0-47.0) % Plt Count 242 (130-400) K/uL BMP 02/07/24 05:48 Sodium 137 Potassium 4.3 D Chloride 106 Carbon Dioxide 22 BUN 17 Creatinine 1.29 H Glucose 186 H Calcium 8.8 Urine 02/06/24 Range/Units 13:20 Urine Color Yellow Urine Appearance Clear (Clear) Urine pH 5.5 (4.5-7.5) Ur Specific [place] 1.021 (1.000-1.030) Urine Protein Trace H (Negative) Urine Glucose (UA) Negative (Negative) Medications Administered Current Inpatient Medications Acetaminophen (Acetaminophen 325 Mg Tab) 650 mg PO Q4H PRN PRN Reason: Pain or Fever Stop: 03/07/24 14:41 Albuterol (Albut/Ipratrop 3mg/0.5mg Neb 3 Ml Vial) 3 ml NEB Q6R [facility]; Protocol Stop: 03/07/24 18:59 Last Admin: 02/07/24 12:57 Dose: 3 ml Amlodipine Besylate (Amlodipine Besylate 5 Mg Tab) 2.5 mg PO HS [facility] Stop: 03/07/24 20:59 Last Admin: 02/06/24 21:18 Dose: 2.5 mg Aspirin (Aspirin 81 Mg Chew) 81 mg PO DAILY [facility] Stop: 03/08/24 08:59 Last Admin: 02/07/24 09:56 Dose: 81 mg Atorvastatin Calcium (Atorvastatin 20 Mg Tab) 20 mg PO DAILY [facility] Stop: 03/08/24 08:59 Last Admin: 02/07/24 09:56 Dose: 20 mg Budesonide (Budesonide 0.5 Mg/2 Ml Vial (Pulmicort)) 0.5 mg NEB BIDR [facility] Stop: 03/07/24 18:59 Last Admin: 02/07/24 07:25 Dose: 0.5 mg Formoterol Fumarate (Formoterol 20 Mcg/2 Ml Vial) 20 mcg NEB BIDR [facility] Stop: 03/07/24 18:59 Last Admin: 02/07/24 07:25 Dose: 20 mcg Guaifenesin (Guaifenesin 600 Mg Tabcr) 1,200 mg PO Q12 [facility] Stop: 03/07/24 20:59 Last Admin: 02/07/24 09:56 Dose: 1,200 mg Heparin Sodium (Porcine) (Heparin Sod 5,000 Unit/0.5 Ml Vial) 5,000 units SQ Q8 [facility] Stop: 03/07/24 14:41 Last Admin: 02/07/24 13:10 Dose: 5,000 units Doxycycline Hyclate 100 mg/ (Dextrose) 100 mls @ 50 mls/hr IV Q12H [facility] Stop: 02/14/24 04:59 Last Infusion: 02/07/24 06:05 Dose: Infused Methylprednisolone 40 mg/ (Syringe) 0.64 mls @ 1.5 mls/min IV Q12H [facility] Stop: 03/07/24 19:59 Last Admin: 02/07/24 09:57 Dose: 1.5 mls/min Piperacillin Sod/Tazobactam (Sod 4.5 gm/ Dextrose) 100 mls @ 25 mls/hr IV Q8H [facility]; Protocol Stop: 02/13/24 21:59 Last Admin: 02/07/24 13:09 Dose: 25 mls/hr Levothyroxine Sodium (Levothyroxine S[facility] 88 Mcg [facility]) [facility]: 03/08/24 06:29 Last Admin: 02/07/24 06:08 Dose: 88 mcg Lisinopril (Lisinopril 10 Mg Tab) 10 mg PO BID [facility] Stop: 03/07/24 20:59 Last Admin: 02/07/24 09:56 Dose: 10 mg Metoprolol Succinate (Metoprolol Succ 25mg Ext Rel Tab) 37.5 mg PO HS [facility] Stop: 03/07/24 20:59 Last Admin: 02/06/24 21:17 Dose: 37.5 mg Ondansetron HCl (Ondansetron Inj 2 Mg/Ml 2 Ml Vial) 4 mg IV Q6H PRN PRN Reason: Nausea And Vomiting Stop: 03/07/24 15:11 Sodium Chloride (Sodium Chlor 7% 4 Ml Neb) 4 ml NEB BIDR [facility] Stop: 03/07/24 18:59 Last Admin: 02/07/24 07:25 Dose: 4 ml
[2024-02-08 06:29] LABS: Hematocrit (blood only) 33.6 % (37.0-47.0); Hemoglobin 10.9 g/dl (12.0-16.0); Mean Corpuscular Hemoglobin 30.1 pg (25.0-34.0); Mean Corpuscular Hgb Conc 32.4 g/dL (32.0-36.0); Mean Corpuscular Volume 92.8 fL (80.0-100.0); Mean Platelet Volume 9.2 fL (9.4-12.4); Platelet Count 233 K/uL (130-400); RDW Coefficient of Variation 13.3 % (11.5-14.5); RDW Standard Deviation 45.3 fL (36.4-46.3); Red Blood Count 3.62 M/uL (4.20-5.40); White Blood Count 19.19 K/ul (4.8-10.8)
[2024-02-08 06:37] LABS: BUN Creatinine Ratio 16.7 (10-20); Calcium 8.2 mg/dl (8.6-10.3); Creatinine Clr Calc Pharmacy 32.2 ml/min; Est GFR (African American) 41.9 ml/min; Est GFR (Non-African American) 36.2 ml/min; Magnesium 1.9 mg/dl (1.7-2.4); Phosphorus 2.7 mg/dl (2.5-4.9); Potassium 4.6 mmol/L (3.5-5.1)
[2024-02-08 06:54] LABS: Basophils # (auto) 0.03 K/uL (0.00-0.20); Basophils % (auto) 0.2 %; Eosinophils # (auto) 0.02 K/uL (0.00-0.50); Eosinophils % (auto) 0.1 %; Immature Granulocytes # (auto) 0.22 K/uL (0.01-0.20); Immature Granulocytes % (auto) 1.1 %; Lymphocytes # (auto) 0.88 K/uL (1.20-3.40); Lymphocytes % (auto) 4.6 %; Monocytes # (auto) 0.56 K/uL (0.11-0.59); Monocytes % (auto) 2.9 %; Neutrophils # (auto) 17.48 K/uL (1.40-6.50); Neutrophils % (auto) 91.1 %
--- NOTE | 2024-02-08 10:25 | Pulmonology Progress Note ---
Date of Service February 08, 2024 Assessment & Plan (1) Consolidation of left upper lobe of lung: Plan: She has complete collapse of the left upper lobe with mucoid impaction. Her symptoms are substantially improved. Recommend de-escalating antibiotics to Augmentin and doxycycline for total of [address] chest in 4 to 6 weeks. She is safe for dismissal from the hospital at this time. Recommend checking ambulatory oxygen levels before discharge. (2) Enterovirus infection: Plan: Suspect this provoked her left upper lobe collapse and new onset symptoms. (3) Asthma exacerbation: Plan: Moderate asthma exacerbation triggered by viral infection. Upon discharge, please discharge her on high-dose 160/4.5 mcg, 2 puffs twice daily Symbicort with a spacer. Please also discharge her with an additional 5 days of prednisone at a dose of 40 mg daily. No taper required. (4) Multiple pulmonary nodules determined by computed tomography of lung: Plan: Multiple densities and nodules noted predominantly in the right lower lobe with a 1.6 cm irregular subpleural density in the superior segment of the right lower lobe medially. Suspect these are inflammatory at this time. Will need a follow-up CT scan in about 6 weeks. (5) Acute dyspnea: Plan: Acute dyspnea secondary to hypoxemia from left upper lobe collapse and viral infection. Resolving. (6) Acute hypoxic respiratory failure: Plan: Secondary to VQ mismatch given left upper lobe collapse. Symptoms improving with above treatment. Plan As above, patient is stable for discharge home with the above-mentioned recommendations. Pulmonary to sign off. Please call with questions. Thank you for the consult. Admission and Anticipated Discharge Date Admission Date: February 06, 2024 Subjective Patient symptomatically much better. On room air. Denies any dyspnea or significant cough. Review of Systems Review of Systems: All systems reviewed & are unremarkable except as noted in HPI & below Physical Exam Physical Exam: Constitutional: Patient appears to be of their stated age. Patient is in no apparent distress. Patient is well-developed. Eyes: Pupils are equal round and reactive to light. Conjunctivae are normal. Anicteric sclera. Ears nose, mouth and throat: No perioral cyanosis. Neck: Trachea is midline. Visual inspection is normal. Respiratory: Prolonged phase of exhalation with diffuse expiratory wheeze. Cardiovascular: Regular rate and rhythm. No murmurs. No edema. Gastrointestinal: Normal bowel sounds, soft, nontender and nondistended. No hepatosplenomegaly noted. Musculoskeletal: No cyanosis. Patient is able to move all extremities. Strength is 5 out of 5 in the upper and lower extremities. Skin: No rashes, warm dry and intact. Neurologic: No obvious focal neurological deficits seen. Psychiatric: Alert and oriented x3 with a euthymic affect. Results & Data Results & Data Vital Signs (Past 12 Hours) Vital Signs Temp Pulse Pulse Resp BP Pulse Ox O2 Del Method 02/08/24 09:25 61 02/08/24 08:27 Room Air 02/08/24 07:23 36.6 C 74 18 152/72 H 96 Room Air 02/08/24 07:09 74 18 96 Room Air 02/08/24 02:35 36.5 C 71 18 156/73 H 95 Room Air 02/07/24 22:42 36.5 C 89 18 155/69 H 94 Room Air PG Care Time/CCT Total # of Minutes Spent Total Time Spent with Patient: Total time spent is greater than 50% in coordination of care (as documented) at patient's floor/unit and/or counseling patient: Coding Level of Care Code 81176 SUB INP/OBS CARE 2/35MIN Diagnoses Consolidation of left upper lobe of lung J18.1 Enterovirus infection B34.1 Asthma exacerbation J45.901 Multiple pulmonary nodules determined by computed tomography of lung R91.8 Acute dyspnea R06.00 Acute hypoxic respiratory failure J96.01
[2024-02-08 11:50] VITALS: BP 145/69; TEMP 97.7
[2024-02-08] MEDS: AMOXICILLIN/CLAVULANATE 875 MG TAB PO SCH (11:58)
--- NOTE | 2024-02-08 12:32 | Hospitalist Progress Note ---
Date of Service February 08, 2024 Assessment & Plan (1) Acute hypoxic respiratory failure: (2) Enterovirus infection: (3) Consolidation of left upper lobe of lung: (4) Asthma exacerbation: Plan: Patient presenting from home with shortness of breath and cough. In the ED, patient was hypoxic on room air 84%, initially required up to 10 L of oxygen via OxyMask Patient tested positive for entero-/rhinovirus Noted to have complete collapse of the left upper lobe of with mucoid plugging Has been started on empiric Zosyn and doxycycline Started on percussive vest therapy and hypertonic nebs, nebulized budesonide and nebulized formoterol twice daily IV Solu-Medrol 40 mg q12h PRN nebs Chest x-ray this morning did show right basilar infiltrate and will continue intravenous antibiotic Condition improved and the patient has been saturating normally on room air without any shortness of breath and/or wheezing Appreciate pulmonary input and recommendation Clinically much better and will continue current management She has been back to her baseline and saturating normally on room air Antibiotics have been changed to oral and she will be discharged home this afternoon on oral prednisone as advised by the high school art teacher for Imaging studies CTA chest: IMPRESSION: 1. Complete collapse of the left upper lobe with partial mucoid opacification of the majority of the left upper lobe bronchi. No central obstructing mass identified on this study. However, an occult obstructing lesion would be the diagnosis of exclusion. Therefore, bronchoscopy recommended for further evaluation. 2. There is a 16 x 13 mm irregular subpleural density within the superior segm ent of the right lower lobe medially with a few surrounding satellite nodules measuring up to 6 mm. This is indeterminate and could represent a pneumonia or primary bronchogenic malignancy. Therefore, bronchoscopy and/or short-term chest CT follow-up recommended. 3. A few additional scattered subcentimeter pulmonary nodules as described above. Attention at follow-up recommended. 4. No evidence for a pulmonary embolus. 5. Multiple sclerotic foci seen within the thoracic spine predominantly at the endplates. Although indeterminate this may be due to long-standing degenerative change. Osteoblastic metastatic disease is considered less likely but not entirely excluded as there are no additional suspicious osseous lesions within the chest. Attention at follow-up recommended to ensure stability. (5) Multiple pulmonary nodules determined by computed tomography of lung: Plan: Pulmonary suspecting that these are inflammatory at this time, will need follow-up CT scan in 6 weeks (6) Abnormal urinalysis: Plan: UA suggest possible UTI Patient asymptomatic On IV Zosyn as above, follow urine culture Urine culture is growing gram-negative bacilli-continue intravenous Zosyn and await further identification and sensitivity Urine culture is growing E. coli which is pansensitive (7) Chronic HFrEF (heart failure with reduced ejection fraction): Plan: Echo 06/2023-EF 40 to 44%, moderate mitral regurgitation, grade 2 diastolic dysfunction Patient appears euvolemic, does not use routine diuretics Continue beta-lemuel and ACEi Monitor volume status closely No signs and symptoms of CHF (8) Hypothyroidism, postradioiodine therapy: Plan: TSH 0.858 Continue levothyroxine (9) Hypertensive kidney disease with chronic kidney disease stage III: Plan: Baseline creatinine low to mid1s Creatinine 1.36 today Monitor renal functions (10) Premature ventricular beats: Plan: history of frequent PVCs Controlled with metoprolol DVT PROPHYLAXIS SQ heparin She will be discharged home this afternoon following to 2 steps O2 saturation test Admission and Anticipated Discharge Date Admission Date: February 06, 2024 Subjective 02/07/2024 The patient was seen and examined in telemetry unit She has been feeling much better since admission Denies any shortness of breath at rest and has been saturating normally on room air No cough and/or wheezing 02/08/2024 The patient was seen and examined in telemetry unit She has been feeling much better and denies any shortness of breath or wheezing at rest Saturating normally on room air She is ambulating in the hallway with minimal shortness of breath but no desaturation She will have the 2 steps O2 saturation test prior to discharge this afternoon Review of Systems Review of Systems: All systems reviewed and are unremarkable except as noted below Physical Exam Physical Exam: Lying in bed without any acute distress Constitutional: + ill appearing and average body habitus Eyes: PERRL, conjunctivae normal, anicteric sclerae ENMT: external ear and nose normal, oropharynx normal Neck: trachea midline, no thyromegaly Respiratory: no respiratory distress Auscultation: + diminished lung sounds and + crackles (Minimal crackles right base) Cardiovascular: Rate/Rhythm: regular rate and regular rhythm; not tachycardic Heart Sounds: normal S1 and normal S2; no murmur Extremities: no edema Gastrointestinal (Abdomen): Inspection/Auscultation: normal bowel sounds; abdomen not distended Percussion/Palpation: abdomen soft; abdomen nontender Musculoskeletal: No acute arthritis involving any of the joints Neurologic: normal touch/pain/proprioception and moves all extremities; no focal motor deficits Psychiatric: A+Ox3, euthymic affect Lymphatic: no cervical or axillary lymphadenopathy Results & Data Results & Data Vital Signs (Past 12 Hours) Vital Signs Temp Pulse Pulse Resp BP Pulse Ox O2 Del Method 02/07/24 12:59 80 16 92 Room Air 02/07/24 11:25 36.5 C 67 18 120/70 94 Room Air 02/07/24 10:14 95 Room Air 02/07/24 09:32 Nasal Cannula 02/07/24 07:40 62 02/07/24 07:27 73 16 95 Nasal Cannula 02/07/24 07:00 36.8 C 82 20 144/80 H 98 Nasal Cannula 02/07/24 02:44 36.4 C L 74 20 167/68 H 97 Nasal Cannula O2 Flow Rate 02/07/24 12:59 02/07/24 11:25 02/07/24 10:14 02/07/24 09:32 3 02/07/24 07:40 02/07/24 07:27 3.5 02/07/24 07:00 3.5 02/07/24 02:44 3 Laboratory Results Short CBC 02/08/24 Range/Units 05:42 WBC 19.19 H (4.8-10.8) K/ul Hgb 10.9 L (12.0-16.0) g/dl Hct 33.6 L (37.0-47.0) % Plt Count 233 (130-400) K/uL BMP 02/08/24 05:42 Sodium 137 Potassium 4.6 Chloride 108 H Carbon Dioxide 21 BUN 24 H Creatinine 1.44 H Glucose 185 H Calcium 8.2 L Medications Administered Current Inpatient Medications Acetaminophen (Acetaminophen 325 Mg Tab) 650 mg PO Q4H PRN PRN Reason: Pain or Fever Stop: 03/07/24 14:41 Albuterol (Albut/Ipratrop 3mg/0.5mg Neb 3 Ml Vial) 3 ml NEB Q6R [facility]; Protocol Stop: 03/07/24 18:59 Last Admin: 02/08/24 07:08 Dose: Not Given Amlodipine Besylate (Amlodipine Besylate 5 Mg Tab) 2.5 mg PO HS [facility] Stop: 03/07/24 20:59 Last Admin: 02/07/24 21:06 Dose: 2.5 mg Amoxicillin/Clavulanate Potassium (Amoxicillin/Clavulanate 875 Mg Tab) 1 tab PO BID [facility] Stop: 02/13/24 20:59 Last Admin: 02/08/24 11:58 Dose: 1 tab Aspirin (Aspirin 81 Mg Chew) 81 mg PO DAILY [facility] Stop: 03/08/24 08:59 Last Admin: 02/08/24 08:39 Dose: 81 mg Atorvastatin Calcium (Atorvastatin 20 Mg Tab) 20 mg PO DAILY [facility] Stop: 03/08/24 08:59 Last Admin: 02/08/24 08:34 Dose: 20 mg Budesonide (Budesonide 0.5 Mg/2 Ml Vial (Pulmicort)) 0.5 mg NEB BIDR [facility] Stop: 03/07/24 18:59 Last Admin: 02/08/24 07:08 Dose: 0.5 mg Doxycycline Hyclate (Doxycycline Hyclate 100 Mg Cap) 100 mg PO Q12H [facility] Stop: 02/14/24 05:59 Formoterol Fumarate (Formoterol 20 Mcg/2 Ml Vial) 20 mcg NEB BIDR [facility] Stop: 03/07/24 18:59 Last Admin: 02/08/24 07:08 Dose: 20 mcg Guaifenesin (Guaifenesin 600 Mg Tabcr) 1,200 mg PO Q12 [facility] Stop: 03/07/24 20:59 Last Admin: 02/08/24 08:35 Dose: 1,200 mg Heparin Sodium (Porcine) (Heparin Sod 5,000 Unit/0.5 Ml Vial) 5,000 units SQ Q8 [facility] Stop: 03/07/24 14:41 Last Admin: 02/08/24 06:09 Dose: 5,000 units Methylprednisolone 40 mg/ (Syringe) 0.64 mls @ 1.5 mls/min IV Q12H [facility] Stop: 03/07/24 19:59 Last Admin: 02/08/24 08:40 Dose: 1.5 mls/min Levothyroxine Sodium (Levothyroxine Sodium 88 Mcg Tablet) 88 mcg PO DAILYBB [facility] Stop: 03/08/24 06:29 Last Admin: 02/08/24 06:11 Dose: 88 mcg Lisinopril (Lisinopril 10 Mg Tab) 10 mg PO BID [facility] Stop: 03/07/24 20:59 Last Admin: 02/08/24 08:35 Dose: 10 mg Metoprolol Succinate (Metoprolol Succ 25mg Ext Rel Tab) 37.5 mg PO HS [facility] Stop: 03/07/24 20:59 Last Admin: 02/07/24 21:07 Dose: 37.5 mg Ondansetron HCl (Ondansetron Inj 2 Mg/Ml 2 Ml Vial) 4 mg IV Q6H PRN PRN Reason: Nausea And Vomiting Stop: 03/07/24 15:11 Sodium Chloride (Sodium Chlor 7% 4 Ml Neb) 4 ml NEB BIDR [facility] Stop: 03/07/24 18:59 Last Admin: 02/08/24 07:08 Dose: 4 ml
[2024-02-08 12:47] VITALS: PULSE 89; RESP 17; O2SAT 92
[2024-02-08] MEDS ORDERED: DOXYCYCLINE HYCLATE 100 MG CAP PO SCH (18:00)
--- NOTE | 2024-02-08 18:08 | Discharge Summary ---
Date of Service February 08, 2024 Admission HPI Per Admitting Provider 73-year-old female with PMH hypothyroidism, asthma, HTN, nonobstructive CAD, mildly reduced EF 40 to 44%, CKD stage III, osteoporosis, and other problems listed below who presents to the ED for evaluation of shortness of breath. History is obtained from the patient and review of outpatient PCP and cardiology records. Patient states she developed upper respiratory symptoms a few days ago which included sore throat and nasal congestion. She then developed a cough which has been mostly nonproductive. Last evening she started to feel short of breath with minimal exertion. This morning, her noted that she was short of breath and checked her pulse ox and it was 77%. He also states that she was unable to speak in full sentences. Patient denies chest pain and palpitations. No fevers or chills. Denies lightheadedness, dizziness, diaphoresis, syncopal events. Reports a good appetite and denies nausea, vomiting, abdominal pain, diarrhea. No urinary symptoms. In the ED, patient is currently requiring 10 L OxyMask to maintain saturations. She tested positive for entero-/rhinovirus. She was given IV Tylenol, nebulizer treatment, IV Benadryl, IV Solu-Medrol. Admission Exam Per Admitting Provider Constitutional: WD/WN, vitals as above no acute distress Eyes: PERRL, conjunctivae normal, anicteric sclerae Respiratory: normal respiratory effort; no respiratory distress Auscultation: + diminished lung sounds Cardiovascular: Rate/Rhythm: regular rhythm and + tachycardic Vessels: normal peripheral pulses Extremities: no edema Gastrointestinal (Abdomen): normal bowel sounds, soft, nontender, no hepatosplenomegaly Musculoskeletal: no cyanosis or clubbing, extremities motor strength 5/5 Skin: no rashes, warm and dry Neurologic: PERRL, EOMI, accommodation nl, no face palsy, no dysarthria Psychiatric: A+Ox3, euthymic affect Principal Diagnosis Acute hypoxic respiratory failure, consolidation of the left upper lobe, asthma exacerbation Discharge Exam Lying in bed without any acute distress Constitutional + ill appearing and average body habitus Eyes PERRL, conjunctivae normal, anicteric sclerae ENMT external ear and nose normal, oropharynx normal Neck trachea midline, no thyromegaly Respiratory no respiratory distress Auscultation: + diminished lung sounds and + crackles (Minimal crackles right base) Cardiovascular Rate/Rhythm: regular rate and regular rhythm; not tachycardic Heart Sounds: normal S1 and normal S2; no murmur Extremities: no edema Gastrointestinal (Abdomen) Inspection/Auscultation: normal bowel sounds; abdomen not distended Percussion/Palpation: abdomen soft; abdomen nontender Neurologic normal touch/pain/proprioception and moves all extremities; no focal motor deficits Psychiatric A+Ox3, euthymic affect Lymphatic no cervical or axillary lymphadenopathy Discharge Data Allergies Allergy/AdvReac Type Severity Reaction Status Date / Time azithromycin Allergy Hives Verified 07/27/23 07:25 Iodinated Contrast Media Allergy Hives Verified 07/27/23 07:25 promethazine Allergy Hives Verified 07/27/23 07:25 Consultations 02/06/24 14:00 Consult Pulmonology Routine Ordered Studies 02/06/24 11:49 CT for pulmonary embolism PE [CT angio chest PE protocol] Stat Hospital Course (1) Acute hypoxic respiratory failure: (2) Enterovirus infection: (3) Consolidation of left upper lobe of lung: (4) Asthma exacerbation: Patient presenting from home with shortness of breath and cough. In the ED, patient was hypoxic on room air 84%, initially required up to 10 L of oxygen via OxyMask Patient tested positive for entero-/rhinovirus Noted to have complete collapse of the left upper lobe of with mucoid plugging Has been started on empiric Zosyn and doxycycline Started on percussive vest therapy and hypertonic nebs, nebulized budesonide and nebulized formoterol twice daily IV Solu-Medrol 40 mg q12h PRN nebs Chest x-ray this morning did show right basilar infiltrate and will continue intravenous antibiotic Condition improved and the patient has been saturating normally on room air without any shortness of breath and/or wheezing Appreciate pulmonary input and recommendation Clinically much better and will continue current management She has been back to her baseline and saturating normally on room air Antibiotics have been changed to oral and she will be discharged home this afternoon on oral prednisone as advised by the women's activities adviser for Imaging studies CTA chest: IMPRESSION: 1. Complete collapse of the left upper lobe with partial mucoid opacification of the majority of the left upper lobe bronchi. No central obstructing mass identified on this study. However, an occult obstructing lesion would be the diagnosis of exclusion. Therefore, bronchoscopy recommended for further evaluation. 2. There is a 16 x 13 mm irregular subpleural density within the superior segment of the right lower lobe medially with a few surrounding satellite nodule s measuring up to 6 mm. This is indeterminate and could represent a pneumonia or primary bronchogenic malignancy. Therefore, bronchoscopy and/or short-term chest CT follow-up recommended. 3. A few additional scattered subcentimeter pulmonary nodules as described above. Attention at follow-up recommended. 4. No evidence for a pulmonary embolus. 5. Multiple sclerotic foci seen within the thoracic spine predominantly at the endplates. Although indeterminate this may be due to long-standing degenerative change. Osteoblastic metastatic disease is considered less likely but not entirely excluded as there are no additional suspicious osseous lesions within the chest. Attention at follow-up recommended to ensure stability. (5) Multiple pulmonary nodules determined by computed tomography of lung: Pulmonary suspecting that these are inflammatory at this time, will need follow-up CT scan in 6 weeks (6) Abnormal urinalysis: UA suggest possible UTI Patient asymptomatic On IV Zosyn as above, follow urine culture Urine culture is growing gram-negative bacilli-continue intravenous Zosyn and await further identification and sensitivity Urine culture is growing E. coli which is pansensitive (7) Chronic HFrEF (heart failure with reduced ejection fraction): Echo 06/2023-EF 40 to 44%, moderate mitral regurgitation, grade 2 diastolic dysfunction Patient appears euvolemic, does not use routine diuretics Continue beta-lemuel and ACEi Monitor volume status closely No signs and symptoms of CHF (8) Hypothyroidism, postradioiodine therapy: TSH 0.858 Continue levothyroxine (9) Hypertensive kidney disease with chronic kidney disease stage III: Baseline creatinine low to mid1s Creatinine 1.36 today Monitor renal functions (10) Premature ventricular beats: history of frequent PVCs Controlled with metoprolol DVT PROPHYLAXIS SQ heparin She will be discharged home this afternoon following to 2 steps O2 saturation test Total Time Total Time Spent Total Time Spent (In Minutes): 35 minutes Discharge Plan Discharge Items Patient Disposition: Home - Self-Care Reason For Visit: hypoxic resp failure Discharge Diagnosis: Acute hypoxic respiratory failure, consolidation of the left upper lobe, asthma exacerbation Condition on Discharge: Good Activity: Resume your previous activity Non-emergency contact: Primary Care Provider Call non-emergency contact if: you have any medication questions and your symptoms worsen Follow-up/Referrals: Bonnie Linares DO [Primary Care Provider] - (Date & Time 02/13/2024 11:20 AM Provider Stacia Keenan PA-C Department Family Medicine [facility] ) Diet: Heart Healthy Addtl Attending Provider Instructions: Please take precaution to avoid falls Finish the course of antibiotic and prednisone Take your other medications as advised Please keep appointment with your healthcare providers You will need to have a repeat CT of the chest in 4 to 6 weeks to evaluate multiple pulmonary nodules noted in the CT in the hospital Pending Studies at Discharge: No Stand-Alone Forms: My [facility] [employer], Smoking Cessation Medications and DC Order Prescriptions: New doxycycline hyclate 100 mg Capsule 100 mg PO Q12H Qty: 10 0RF amoxicillin-pot clavulanate 875-125 mg Tablet 1 tab PO BID Qty: 10 0RF budesonide-formoterol [Breyna] 160-4.5 mcg/actuation HFA aerosol inhaler 2 inh inhalation BID Qty: 10.2 0RF Rx Instructions: With a spacer prednisone 20 mg tablet 40 mg PO DAILY Qty: 20 0RF Continued atorvastatin 20 mg Tablet 20 mg PO DAILY aspirin 81 mg Tablet,Chewable 81 mg PO DAILY beclomethasone dipropionate 80 mcg/actuation Hfa Aerosol Breath Activated 2 inh INHALATION Q12H alendronate 70 mg Tablet 70 mg PO WK Rx Instructions: 1 tablet once a week with 8 oz of water before first meal of the day albuterol sulfate [Ventolin HFA] 90 mcg/actuation HFA aerosol inhaler 108 mcg INHALATION Q4 PRN (Reason: Cough) Rx Instructions: inhale 2 puffs by mouth every 4 hours as needed for cough/wheezing multivitamin Tablet 1 tab PO DAILY cyanocobalamin (vitamin B-12) [Vitamin B-12] 1,000 mcg Tablet 1,000 mcg PO DAILY lisinopril 10 mg tablet 10 mg PO BID clobetasol 0.05 % Ointment 1 applic TOPICAL 2XD Rx Instructions: to open area on scalp albuterol sulfate 2.5 mg /3 mL (0.083 %) solution for nebulization 2.5 mg inhalation Q4H PRN (Reason: Shortness Of Breath Or Wheezing) levothyroxine 88 mcg tablet 88 mcg PO DAILY metoprolol succinate 25 mg tablet extended release 24 hr 37.5 mg PO HS amlodipine 2.5 mg tablet 2.5 mg PO HS Discharge Orders: Discharge Order (Routine); Ordered 02/08/24 Ordered By: Stacy Breaux Admission Data Admit Date/Time: 02/06/24 12:27 Attending Provider: Stacy Breaux Admit Provider: Ana Gates Primary Care Provider: Bonnie Linares Other Providers: Lev Contreras; Ana Gates Other Interventions: Discharge Summary Assessment (RN) Last Done: 02/08/24 14:46
--- NOTE | 2024-02-09 18:41 | Coding Query ---
CODING QUERY To promote full compliance with coding requirements relating to patient care, provider participation is requested in all cases of track welder uncertainty. Please assist us with the question(s) below: Coding Question(s): Pt.is a 73-year-old female presented for shortness of breath and hypoxia. The medical record reflects the following clinical evidence: Clinical Indicators: +4/4 SIRS criteria, SOFA score of 3, P/F ratio 65, Tachycardia 111, tachypnea 24, hypertensive, room air hypoxia of 84%, WBCs 13.34, creatinine 1.36, PCR positive for enterovirus, UA positive 4+plus bacteria, 2+ leukocyte esterase, urine culture positive for E. coli, Repeat chest x-ray shows There are increasing patchy airspace opacities at the right lung base, likely representing an infectious/inflammatory pneumonitis. Risk Factor(s): Age, history of asthma, chest x-ray findings, possible underlying UTI Treatment: IV NS bolus, then primary IV Zosyn, IV Solu-Medrol, IV doxycycline, IV cefepime, DuoNebs, IV APAP, urine culture, Physician's Response(s): ___Sepsis POA ___Other explanation of clinical findings _x__Unable to determine (no explanation for clinical findings) Thank you Portia JONES
== END 2024-02-08 15:23 | disposition home or self-care (01) | DRG 189 ==
LOC: ED 09:44 → EDINP 12:27 → SUATTDRO 12:27 → 2S 14:43
DX: B96.20 Unspecified Escherichia coli [E. coli] as the cause of diseases classified elsewhere; Z88.8 Allergy status to other drugs, medicaments and biological substances; I50.22 Chronic systolic (congestive) heart failure; Z79.82 Long term (current) use of aspirin; N18.30 Chronic kidney disease, stage 3 unspecified; J96.01 Acute respiratory failure with hypoxia; Z79.899 Other long term (current) drug therapy; Z79.890 Hormone replacement therapy; I25.10 Atherosclerotic heart disease of native coronary artery without angina pectoris; B34.8 Other viral infections of unspecified site; I13.0 Hypertensive heart and chronic kidney disease with heart failure and stage 1 through stage 4 chronic kidney disease, or unspecified chronic kidney disease; R91.8 Other nonspecific abnormal finding of lung field; I49.3 Ventricular premature depolarization; J45.901 Unspecified asthma with (acute) exacerbation; Z95.1 Presence of aortocoronary bypass graft; N39.0 Urinary tract infection, site not specified; M81.0 Age-related osteoporosis without current pathological fracture; Z88.1 Allergy status to other antibiotic agents; Z91.041 Radiographic dye allergy status; E03.9 Hypothyroidism, unspecified; B34.1 Enterovirus infection, unspecified